=== PATIENT | male | born 1955 | race Caucasian/White ===

== ENCOUNTER 2016-08-14 10:42 | Emergency (ER) | payer MEDICAID, OTHER ==
[~2016-08-14] VITALS: Ht 167.6 cm; Wt 62.8 kg
[~2016-08-14 10:42] MED LIST: AMLO10TA2 PO; ASPI325T PO; IBUP-232 PO; PANT20 PO; PERC5TAB12 PO; ROBA750T PO; XANA2TAB2 PO
[2016-08-14 10:52] VITALS: BP 134/76; PULSE 105; RESP 20; TEMP 98.6; O2SAT 100
--- NOTE | 2016-08-14 11:41 | PD ---
HPI Chief Complaint: Flank/Kidney Pain Time Seen by Provider: 11:24 Travel History International Travel<30 days: No Contact w/Intl Traveler<30days: No Traveled to known affect area: No History of Present Illness HPI 61-year-old male complains of left flank pain and fever. Patient started having severe left flank pain sharp pain localized to the left flank area without radiation. Patient states that the pain is worse with movement. Patient states that he has intermittent dry cough. Patient states that he had fever up to 103 2 days ago. Patient states that the fever subsided yesterday. Patient denies any headache. Patient denies any earache sore throat. Patient denies any chest pain or shortness of breath. Patient denies abdominal pain. Patient denied dysuria or frequency. Patient has history chronic back pain. PFSH Past Medical History Hx Anticoagulant Therapy: Yes Arthritis: Yes Asthma: No Autoimmune Disease: No Anxiety: Yes Depression: No Heart Rhythm Problems: No Cancer: No Cardiac Catheterization: Yes (1999) Cardiovascular Problems: Yes (HTN) High Cholesterol: No (unknown no meds being taken) Chest Pain: Yes COPD: No Cerebrovascular Accident: No Coronary Artery Disease: Yes Diabetes: No Diminished Hearing: No Endocrine: No GERD: Yes Genitourinary: No Hiatal Hernia: No Hypertension: Yes Immune Disorder: No Kidney Stones: No Musculoskeletal: Yes Neurologic: No Psychiatric: Yes Reproductive: No Respiratory: No Immunizations Current: Yes Migraines: No Myocardial Infarction: Yes (1999) Renal Failure: No Seizures: No Sickle Cell Disease: No Sleep Apnea: No Thyroid Disease: No Ulcer: No Tetanus Vaccination: > 5 Years Influenza Vaccination: No Past Surgical History Abdominal Surgery: Yes (appy around 1979) AICD: Yes Appendectomy: Yes Arteriovenous Shunt: No Cardiac Surgery: Yes (heart cath 16 YEARS AGO) Ear Surgery: No Endocrine Surgery: No Eye Surgery: No Gynecologic Surgery: No Insulin Pump: No Joint Replacement: No Oral Surgery: No Pacemaker: No Thoracic Surgery: No Other Surgery: Yes Social History Alcohol Use: No Tobacco Use: Yes (1PPD) Substance Use: No Allergies-Medications (Allergen,Severity, Reaction): Coded Allergies: Penicillin (Verified Allergy, Intermediate, HIVES, 08/14/16) Reported Meds & Prescriptions Reported Meds & Active Scripts Active Reported Protonix (Pantoprazole Sodium) 20 Mg Tab 40 Mg PO DAILY Aspirin 325 Mg Tab 325 Mg PO DAILY Amlodipine (Amlodipine Besylate) 10 Mg Tab 10 Mg PO DAILY Review of Systems General / Constitutional: Positive: Fever Eyes: No: Visual changes HENT: No: Headaches Cardiovascular: No: Chest Pain or Discomfort Respiratory: No: Shortness of Breath Gastrointestinal: No: Abdominal Pain Genitourinary: No: Dysuria Musculoskeletal: No: Pain Skin: No Rash Neurologic: No: Weakness Psychiatric: No: Depression Endocrine: No: Polydipsia Hematologic/Lymphatic: No: Easy Bruising Physical Exam Narrative GENERAL: Well-nourished, well-developed patient. SKIN: Warm and dry. HEAD: Normocephalic. EYES: No scleral icterus. No injection or drainage. NECK: Supple, trachea midline. No JVD or lymphadenopathy. CARDIOVASCULAR: Regular rate and rhythm without murmurs, gallops, or rubs. RESPIRATORY: Breath sounds equal bilaterally. No accessory muscle use. GASTROINTESTINAL: Abdomen soft, non-tender, nondistended. MUSCULOSKELETAL: No cyanosis, or edema. BACK: Patient has moderate tenderness on palpation left lumbar area, left flank area. Neurologic exam normal. Data Data Last Documented VS Vital Signs Date Time Temp Pulse Resp B/P Pulse Ox O2 Delivery O2 Flow Rate FiO2 08/14/16 12:40 97 Room Air 08/14/16 10:52 98.6 105 20 134/76 Orders Complete Blood Count With Diff (08/14/16 11:31) Comprehensive Metabolic Panel (08/14/16 11:31) Lipase (08/14/16 11:31) Prothrombin Time / Inr (Pt) (08/14/16 11:31) Act Partial Throm Time (Ptt) (08/14/16 11:31) Urinalysis - C+S If Indicated (08/14/16 11:31) Ct Abd/Pel W/O Iv Contrast (08/14/16 11:31) Iv Access Insert/Monitor (08/14/16 11:31) Ecg Monitoring (08/14/16 11:31) Oximetry (08/14/16 11:31) Sodium Chloride 0.9% Flush (Ns Flush) (08/14/16 11:45) Chest, Single Ap (08/14/16 11:31) Ketorolac Inj (Toradol Inj) (08/14/16 11:45) Orphenadrine Inj (Norflex Inj) (08/14/16 12:45) Labs Laboratory Tests Test 08/14/16 11:25 White Blood Count 7.3 TH/MM3 Red Blood Count 5.11 MIL/MM3 Hemoglobin 14.4 GM/DL Hematocrit 43.9 % Mean Corpuscular Volume 85.9 FL Mean Corpuscular Hemoglobin 28.1 PG Mean Corpuscular Hemoglobin 32.8 % Concent Red Cell Distribution Width 13.2 % Platelet Count 270 TH/MM3 Mean Platelet Volume 7.2 FL Neutrophils (%) (Auto) 77.7 % Lymphocytes (%) (Auto) 11.4 % Monocytes (%) (Auto) 10.2 % Eosinophils (%) (Auto) 0.3 % Basophils (%) (Auto) 0.4 % Neutrophils # (Auto) 5.8 TH/MM3 Lymphocytes # (Auto) 0.8 TH/MM3 Monocytes # (Auto) 0.7 TH/MM3 Eosinophils # (Auto) 0.0 TH/MM3 Basophils # (Auto) 0.0 TH/MM3 CBC Comment DIFF FINAL Differential Comment Prothrombin Time 10.8 SEC Prothromb Time International 1.0 RATIO Ratio Activated Partial 30.8 SEC Thromboplast Time Urine Color YELLOW Urine Turbidity CLEAR Urine pH 6.0 Urine Specific [place] 1.017 Urine Protein NEG mg/dL Urine Glucose (UA) NEG mg/dL Urine Ketones NEG mg/dL Urine Occult Blood NEG Urine Nitrite NEG Urine Bilirubin NEG Urine Leukocyte Esterase NEG Urine WBC 3-5 /hpf Urine Squamous Epithelial 0-5 /hpf Cells Urine Bacteria OCC /hpf Urine Hyaline Casts 0-2 /lpf Urine Mucus MANY /lpf Urine Sperm RARE Microscopic Urinalysis Comment CULT NOT INDICATED Sodium Level 140 MEQ/L Potassium Level 4.2 MEQ/L Chloride Level 105 MEQ/L Carbon Dioxide Level 27.8 MEQ/L Anion Gap 7 MEQ/L Blood Urea Nitrogen 11 MG/DL Creatinine 0.96 MG/DL Estimat Glomerular Filtration 80 ML/MIN Rate Random Glucose 104 MG/DL Calcium Level 8.4 MG/DL Total Bilirubin 0.3 MG/DL Aspartate Amino Transf 12 U/L (AST/SGOT) Alanine Aminotransferase 15 U/L (ALT/SGPT) Alkaline Phosphatase 127 U/L Total Protein 7.7 GM/DL Albumin 3.4 GM/DL Lipase 141 U/L [facility] Medical Decision Making Medical Screen Exam Complete: Yes Emergency Medical Condition: Yes Interpretation(s) 12:17 PM. CBC within normal limit. WBC 7.3. 77 neutrophil. CMP within normal limit. Alkaline phosphatase 127. UA positive with occasional bacteria. Negative for WBC. Differential Diagnosis Differential diagnosis including musculoskeletal, nephrolithiasis, pyelonephritis, colitis. Narrative Course 61-year-old male with left flank pain and fever. Toradol 30 mg IV. Norflex 60 mg IM. Diagnosis Primary Impression: Bronchitis Additional Impression: Left flank pain Patient Instructions: General Instructions Additional Instructions: Medications as directed. Follow-up with personal physician. Return if worse. Med/Other Pt SpecificInfo: Prescription(s) given Scripts Azithromycin (Zithromax Z-Ja)250 Mg [id number] Mg PO DIRECTED #1 DSPK Ref 0 500 MG (2 tabs) day 1, then 1 tab days 2-5. Prov:Mukesh Iqbal MD 08/14/16 Cyclobenzaprine (Flexeril)10 Mg Tab10 Mg PO TID #60 TAB Ref 0 Prov:Mukesh Iqbal MD 08/14/16 Disposition: 01 DISCHARGE HOME Condition: Stable Mukesh Iqbal MD Aug 14, 2016 11:41
[2016-08-14 11:45] LABS: AUTOMATED NEUTROPHIL # 5.8 TH/MM3 (1.8-7.7); BASOPHIL % 0.4 % (0.0-2.0); EOSINOPHIL % 0.3 % (0.0-4.0); HEMATOCRIT 43.9 % (39.0-51.0); HEMO FLAGS DIFF FINAL; LYMPH % 11.4 % (9.0-44.0); LYMPHOCYTE # 0.8 TH/MM3 (1.0-4.8); MEAN CELL VOLUME 85.9 FL (80.0-100.0); MEAN CORPUSCULAR HEMOGLOBIN 28.1 PG (27.0-34.0); MEAN CORPUSCULAR HGB CONC 32.8 % (32.0-36.0); MONO % 10.2 % (0.0-8.0); NEUT % 77.7 % (16.0-70.0); PLATELET COUNT 270 TH/MM3 (150-450); RED BLOOD COUNT 5.11 MIL/MM3 (4.50-5.90); RED CELL DISTRIBUTION WIDTH 13.2 % (11.6-17.2); WHITE BLOOD COUNT 7.3 TH/MM3 (4.0-11.0)
[2016-08-14] MEDS ORDERED: SODIUM CHLORIDE 0.9% FLUSH 5 ML FLUSH IVF PRN (11:45)
[2016-08-14] MEDS ORDERED: KETOROLAC TROMETHAMINE 30 MG/ML (IVP) VIAL IVP ONE (11:45)
[2016-08-14 11:51] LABS: BLOOD, URINE NEG (NEG); GLUCOSE,URINE NEG (NEG); KETONE, URINE NEG (NEG); NITRITE,URINE NEG (NEG)
[2016-08-14 11:53] LABS: URINE COLOR YELLOW (YELLW/STRAW)
[2016-08-14 11:54] LABS: CHLORIDE 105 MEQ/L (98-107); POTASSIUM 4.2 MEQ/L (3.5-5.1); SODIUM (NA) 140 MEQ/L (136-145)
[2016-08-14 11:57] LABS: HYALINE CAST, URINE 0-2 /lpf (RARE); MUCUS URINE MANY /lpf (OCC)
[2016-08-14 11:58] LABS: ANION GAP 7 MEQ/L (5-15); APTT (PATIENT) 30.8 SEC (24.3-30.1); BACTERIA, URINE OCC /hpf; BICARBONATE 27.8 MEQ/L (21.0-32.0); BLOOD UREA NITROGEN 11 MG/DL (7-18); PROTHROMBIN TIME - PATIENT 10.8 SEC (9.8-11.6); SQUAMOUS EPITHELIAL CELL URINE 0-5 /hpf (0-5)
[2016-08-14 11:59] LABS: COMMENT (UR) CULT NOT INDICATED; CULTURE IF INDICATED CULT NOT INDICATED
[2016-08-14 12:01] LABS: ALT (GPT) 15 U/L (12-78); AST (GOT) 12 U/L (15-37); GLOMERULAR FILTRATION RATE 80 ML/MIN (>89)
[2016-08-14 12:02] LABS: TOTAL BILIRUBIN ADULT 0.3 MG/DL (0.2-1.0)
[2016-08-14 12:03] LABS: ALKALINE PHOSPHATASE 127 U/L (45-117)
[2016-08-14 12:40] VITALS: O2SAT 97
[2016-08-14] MEDS ORDERED: ORPHENADRINE INJ 60 MG/2 ML AMP IM ONE (12:45)
--- NOTE | 2016-08-14 12:58 | RADHPO ---
EXAM DATE/TIME: 08/14/2016 12:00 [facility] COMPARISON: No previous studies available for comparison. INDICATIONS: Left flank pain. ORAL CONTRAST: No oral contrast ingested. RADIATION DOSE: 8.95 CTDIvol (mGy) MEDICAL HISTORY: Hypertension. SURGICAL HISTORY: Appendectomy. ENCOUNTER: Initial ACUITY: 3 days PAIN SCALE: 4/10 LOCATION: Left flank TECHNIQUE: Volumetric scanning of the abdomen and pelvis was performed. Using automated exposure control and ad justment of the mA and/or kV according to patient size, radiation dose was kept as low as reasonably achievable to obtain optimal diagnostic quality images. FINDINGS: Lung bases are clear. The portion of the liver and spleen identified are free of focal defects. Leander cified gallstones are noted in the gallbladder. Pancreas is unremarkable. Adrenal glands appear normal. RIGHT KIDNEY: There is a 3 mm calcification in the right renal pelvis. LEFT KIDNEY: On the left there is a single 1 mm calcification upper pole of the left kidney. There are no calcifications along the expected course of the right or the left ureter. There is blad ben wall thickening present. Prostatic calcifications are noted. There is no ascites or adenopathy. Review of bone windows reveals only degenerative changes. CONCLUSION: 1. Small bilateral renal stones without evidence for perinephric stranding. 2. Polynephritis cannot be excluded because of lack of intravenous contrast. 3. There are moderate degenerative changes present in the lumbar spine. 4. Moderate bladder wall thickening that does deserve further evaluation. Vasquez Gaitan MD FACR on August 14, 2016 at 12:47 Board Certified Radiologist. This report was verified electronically.
--- NOTE | 2016-08-14 13:04 | RADHPO ---
EXAM DATE/TIME: 08/14/2016 11:56 [facility] COMPARISON: CHEST SINGLE AP, June 12, 2016, 17:53. INDICATIONS: Fever MEDICAL HISTORY: Smoker SURGICAL HISTORY: None. ENCOUNTER: Initial ACUITY: 2 days PAIN SCORE: 10/10 LOCATION: Bilateral chest FINDINGS: There is a background of fine interstitial changes present in both lungs. Heart and pulmonary vascul arity are normal. Portion of bony skeleton visualized unremarkable. CONCLUSION: Minimal interstitial changes in both lungs. This could be an early inflammatory process as questione d. Vasqeuz Gaitan MD FACR on August 14, 2016 at 13:01 Board Certified Radiologist. This report was verified electronically.
[2016-08-14] MEDS ORDERED: ZITHTAB PO (13:16)
[2016-08-14] MEDS ORDERED: CYCL1TAB29 PO (13:16)
[2016-08-14 13:27] VITALS: BP 95/61
== END 2016-08-14 13:29 | disposition home or self-care (01) ==
LOC: PHED 10:42
DX: J40 Bronchitis, not specified as acute or chronic (principal); R10.12 Left upper quadrant pain; I10 Essential (primary) hypertension; N20.0 Calculus of kidney; I25.2 Old myocardial infarction; F17.210 Nicotine dependence, cigarettes, uncomplicated
CPT/HCPCS: 71010; 74176; 80053; 81001; 83690; 85025; 85610; 85730; 96372; 96374; 99284; J1885; J2360

== ENCOUNTER 2017-03-05 17:04 | Observation (INO) | payer OTHER ==
[~2017-03-05] VITALS: Ht 167.6 cm; Wt 66.2 kg
[~2017-03-05 17:04] MED LIST changes: +CYCL1TAB29 PO; -IBUP-232 PO; -PERC5TAB12 PO; -ROBA750T PO; +ZITHTAB PO
[2017-03-05 17:09] VITALS: BP 142/65; PULSE 90; RESP 18; TEMP 99.5; O2SAT 93
[2017-03-05] MEDS ORDERED: SODIUM CHLOR 0.9% 1000 ML INJ 1,000 ML IV SCH (18:54)
[2017-03-05] MEDS ORDERED: OXYC-396 PO (18:55)
[2017-03-05] MEDS ORDERED: SODIUM CHLORIDE 0.9% FLUSH 10 ML FLUSH IV FLUSH PRN ×2 (19:00→23:00)
[2017-03-05] MEDS ORDERED: ONDANSETRON HCL 4 MG/2 ML VIAL IV PUSH ONE (19:30)
[2017-03-05] MEDS ORDERED: MORPHINE SULFATE 4 MG/ML INJ IV PUSH ONE (19:30)
[2017-03-05 19:35] VITALS: BP 131/71; PULSE 78; RESP 18; TEMP 98.1; O2SAT 93
[2017-03-05 19:40] LABS: AUTOMATED NEUTROPHIL # 7.6 TH/MM3 (1.8-7.7); BASOPHIL # 0.1 TH/MM3 (0-0.2); BASOPHIL % 0.6 % (0.0-2.0); EOSINOPHIL # 0.3 TH/MM3 (0-0.4); EOSINOPHIL % 2.4 % (0.0-4.0); HEMATOCRIT 39.9 % (39.0-51.0); HEMO FLAGS DIFF FINAL; LYMPH % 20.5 % (9.0-44.0); LYMPHOCYTE # 2.3 TH/MM3 (1.0-4.8); MEAN CELL VOLUME 86.9 FL (80.0-100.0); MEAN CORPUSCULAR HEMOGLOBIN 28.4 PG (27.0-34.0); MEAN CORPUSCULAR HGB CONC 32.7 % (32.0-36.0); MONO % 7.2 % (0.0-8.0); NEUT % 69.3 % (16.0-70.0); PLATELET COUNT 300 TH/MM3 (150-450); RED BLOOD COUNT 4.59 MIL/MM3 (4.50-5.90); RED CELL DISTRIBUTION WIDTH 13.6 % (11.6-17.2); WHITE BLOOD COUNT 11.1 TH/MM3 (4.0-11.0)
[2017-03-05 19:51] VITALS: O2SAT 95
[2017-03-05 19:51] LABS: CHLORIDE 102 MEQ/L (98-107); POTASSIUM 3.8 MEQ/L (3.5-5.1); SODIUM (NA) 137 MEQ/L (136-145)
[2017-03-05 19:55] LABS: ANION GAP 5 MEQ/L (5-15); BICARBONATE 29.8 MEQ/L (21.0-32.0); BLOOD UREA NITROGEN 11 MG/DL (7-18)
[2017-03-05 19:57] LABS: APTT (PATIENT) 30.9 SEC (24.3-30.1); PROTHROMBIN TIME - PATIENT 10.5 SEC (9.8-11.6)
[2017-03-05 19:58] LABS: ALT (GPT) 16 U/L (12-78); AST (GOT) 19 U/L (15-37); GLOMERULAR FILTRATION RATE 76 ML/MIN (>89)
[2017-03-05 20:00] LABS: TOTAL BILIRUBIN ADULT 0.2 MG/DL (0.2-1.0)
[2017-03-05 20:01] LABS: ALKALINE PHOSPHATASE 119 U/L (45-117)
[2017-03-05 20:14] VITALS: BP 126/59; PULSE 76; RESP 17; O2SAT 97
[2017-03-05 20:32] VITALS: BP 129/67; PULSE 81; RESP 18; TEMP 97.9; O2SAT 96
[2017-03-05] MEDS ORDERED: IOHEXOL 350 MG/ML 10 ML VIAL (for RAD DIAG) IVCONTRAST ONE (20:56)
--- NOTE | 2017-03-05 21:18 | PD ---
HPI Chief Complaint: GI Complaint Time Seen by Provider: 18:38 Travel History International Travel<30 days: No Contact w/Intl Traveler<30days: No Traveled to known affect area: No History of Present Illness HPI The patient 62 years old. He arrives complaining of hematochezia. 10 episodes of hematochezia were observed, bright red blood. The patient reports a colonoscopy was done 1 year ago and was normal. That was done at that time due to a 60 pound weight loss with no identifiable etiology. He describes a crampy like abdominal pain precipitating each episode of hematochezia. Minimal lightheadedness reported. No palpitations no headache, no loss of consciousness or dizziness. Patient takes aspirin and no anticoagulants otherwise. PFSH Past Medical History Hx Anticoagulant Therapy: Yes Arthritis: Yes (back) Asthma: No Autoimmune Disease: No Anxiety: Yes Depression: No Heart Rhythm Problems: No Cancer: No Cardiac Catheterization: Yes (1999) Cardiovascular Problems: Yes (HTN) High Cholesterol: No (unknown no meds being taken) Chest Pain: Yes COPD: No Cerebrovascular Accident: No Coronary Artery Disease: Yes Diabetes: No Diminished Hearing: No Endocrine: No GERD: Yes Genitourinary: No Hiatal Hernia: No Hypertension: Yes Immune Disorder: No Kidney Stones: No Musculoskeletal: Yes Neurologic: No Psychiatric: Yes Reproductive: No Respiratory: No Immunizations Current: Yes Migraines: No Myocardial Infarction: Yes (1999) Renal Failure: No Seizures: No Sickle Cell Disease: No Sleep Apnea: No Thyroid Disease: No Ulcer: No Tetanus Vaccination: > 5 Years Influenza Vaccination: No Past Surgical History Abdominal Surgery: Yes (appy around 1979) AICD: Yes Appendectomy: Yes Arteriovenous Shunt: No Cardiac Surgery: Yes (heart cath) Ear Surgery: No Endocrine Surgery: No Eye Surgery: No Gynecologic Surgery: No Insulin Pump: No Joint Replacement: No Oral Surgery: No Pacemaker: No Thoracic Surgery: No Other Surgery: Yes Social History Alcohol Use: No Tobacco Use: Yes (1 1/2PPD) Substance Use: No Allergies-Medications (Allergen,Severity, Reaction): Coded Allergies: penicillin G (Unverified Allergy, Intermediate, HIVES, 03/05/17) Reported Meds & Prescriptions Reported Meds & Active Scripts Active Reported Oxycodone (Oxycodone HCl) 20 Mg Tab 20 Mg PO QID PRN Xanax (Alprazolam) 2 Mg Tab 2 Mg PO HS PRN Aspirin 325 Mg Tab 325 Mg PO DAILY Amlodipine (Amlodipine Besylate) 10 Mg Tab 10 Mg PO DAILY Review of Systems Except as stated in HPI: all other systems reviewed are Neg Physical Exam Narrative GENERAL: 52-year-old male well-nourished well-developed no acute distress SKIN: Warm and dry. HEAD: Atraumatic. Normocephalic. EYES: Pupils equal and round. No scleral icterus. No injection or drainage. ENT: No nasal bleeding or discharge. Mucous membranes pink and moist. NECK: Trachea midline. No JVD. CARDIOVASCULAR: Regular rate and rhythm. RESPIRATORY: No accessory muscle use. Clear to auscultation. Breath sounds equal bilaterally. GASTROINTESTINAL: Abdomen soft, non-tender, nondistended. Hepatic and splenic margins not palpable. MUSCULOSKELETAL: Extremities without clubbing, cyanosis, or edema. No obvious deformities. NEUROLOGICAL: Awake and alert. No obvious cranial nerve deficits. Motor grossly within normal limits. Five out of 5 muscle strength in the arms and legs. Normal speech. PSYCHIATRIC: Appropriate mood and affect; insight and judgment normal. Data Data Last Documented VS Vital Signs Date Time Temp Pulse Resp B/P (MAP) Pulse Ox O2 Delivery O2 Flow Rate FiO2 03/05/17 20:32 97.9 81 18 129/67 (87) 96 Room Air 03/05/17 20:14 2.00 Blood pressure 131/71 Orders Orders Complete Blood Count With Diff (03/05/17 18:54) Comprehensive Metabolic Panel (03/05/17 18:54) Lactic Acid (03/05/17 18:54) Prothrombin Time / Inr (Pt) (03/05/17 18:54) Act Partial Throm Time (Ptt) (03/05/17 18:54) Iv Access Insert/Monitor (03/05/17 18:54) Ecg Monitoring (03/05/17 18:54) Oximetry (03/05/17 18:54) Sodium Chlor 0.9% 1000 Ml Inj (Ns 1000 M (03/05/17 18:54) Sodium Chloride 0.9% Flush (Ns Flush) (03/05/17 19:00) Type And Screen (03/05/17 18:54) Cta Abd/Pel W Iv Contrast W 3d (03/05/17 ) Morphine Inj (Morphine Inj) (03/05/17 19:30) Ondansetron Inj (Zofran Inj) (03/05/17 19:30) Iohexol 350 Inj (Omnipaque 350 Inj) (03/05/17 20:56) Admit Order (Ed Use Only) (03/05/17 22:55) Consult Gastroenterology (03/05/17 ) Place In Observation (03/05/17 ) Vital Signs (Adult) Q4H (03/05/17 22:57) Activity Oob With Assistance (03/05/17 22:57) Anaesthesiologist / Telemetry .CONTINUOUS (03/05/17 22:57) Diet Npo (03/06/17 Breakfast) Sodium Chloride 0.9% Flush (Ns Flush) (03/05/17 23:00) Sodium Chloride 0.9% Flush (Ns Flush) (03/06/17 09:00) Naloxone Inj (Narcan Inj) (03/05/17 23:00) Hgb & Hct (03/05/17 22:57) Hgb & Hct (03/06/17 02:57) Hgb & Hct (03/06/17 06:57) Hgb & Hct (03/06/17 10:57) Labs Laboratory Tests Test 03/05/17 19:29 White Blood Count 11.1 TH/MM3 Red Blood Count 4.59 MIL/MM3 Hemoglobin 13.1 GM/DL Hematocrit 39.9 % Mean Corpuscular Volume 86.9 FL Mean Corpuscular Hemoglobin 28.4 PG Mean Corpuscular Hemoglobin Concent 32.7 % Red Cell Distribution Width 13.6 % Platelet Count 300 TH/MM3 Mean Platelet Volume 7.3 FL Neutrophils (%) (Auto) 69.3 % Lymphocytes (%) (Auto) 20.5 % Monocytes (%) (Auto) 7.2 % Eosinophils (%) (Auto) 2.4 % Basophils (%) (Auto) 0.6 % Neutrophils # (Auto) 7.6 TH/MM3 Lymphocytes # (Auto) 2.3 TH/MM3 Monocytes # (Auto) 0.8 TH/MM3 Eosinophils # (Auto) 0.3 TH/MM3 Basophils # (Auto) 0.1 TH/MM3 CBC Comment DIFF FINAL Differential Comment Prothrombin Time 10.5 SEC Prothromb Time International Ratio 1.0 RATIO Activated Partial Thromboplast Time 30.9 SEC Blood Urea Nitrogen 11 MG/DL Creatinine 1.00 MG/DL Random Glucose 95 MG/DL Total Protein 7.1 GM/DL Albumin 3.3 GM/DL Calcium Level 7.7 MG/DL Alkaline Phosphatase 119 U/L Aspartate Amino Transf (AST/SGOT) 19 U/L Alanine Aminotransferase (ALT/SGPT) 16 U/L Total Bilirubin 0.2 MG/DL Sodium Level 137 MEQ/L Potassium Level 3.8 MEQ/L Chloride Level 102 MEQ/L Carbon Dioxide Level 29.8 MEQ/L Anion Gap 5 MEQ/L Estimat Glomerular Filtration Rate 76 ML/MIN Lactic Acid Level 0.6 mmol/L MDM Medical Decision Making Medical Screen Exam Complete: Yes Emergency Medical Condition: Yes Medical Record Reviewed: Yes Differential Diagnosis Diverticulosis, diverticulitis, acute anemia, angiodysplasia, hemorrhoids Narrative Course CBC & BMP Diagram 03/05/17 19:29 Total Protein 7.1, Albumin 3.3 L, Calcium Level 7.7 L, Alkaline Phosphatase 119 H, Aspartate Amino Transf (AST/SGOT) 19, Alanine Aminotransferase (ALT/SGPT) 16 , Total Bilirubin 0.2 Lactic acid 0.[address] abdomen and pelvis reveals suspected colitis involving much of the left side of the colon. Focal area prominent plaque in her dissection at the posterior distal abdominal aorta appears stable. 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 Case discussed with vascular surgery who notes no acute vascular issue. Case discussed with Dr Hogan for [facility]. consult to GI placed Diagnosis Primary Impression: Colitis Additional Impression: Hematochezia Admitting Information Admitting Physician Requests: Observation Mt Gorman MD Mar 05, 2017 21:18
--- NOTE | 2017-03-05 22:11 | RADRPT ---
EXAM DATE/TIME: 03/05/2017 20:21 [facility] COMPARISON: CT ABDOMEN & PELVIS W CONTRAST, November 26, 2015, 20:17. INDICATIONS : Abdominal pain. Thrombosis. Evaluate for mesenteric ischemia. IV CONTRAST: 100 cc Omnipaque 350 (iohexol) IV ORAL CONTRAST: No oral contrast ingested. RADIATION DOSE: 18.03 CTDIvol (mGy) MEDICAL HISTORY : Gastroesophageal reflux disease. Hypertension. SURGICAL HISTORY : Appendectomy. ENCOUNTER: Initial ACUITY: 1 week PAIN SCALE: 2/10 LOCATION: Bilateral upper quadrant lower quadrant. TECHNIQUE: Volumetric scanning was performed using a multi-row detector CT scanner. The data was post processed with a variety of visualization algorithms including full volume maximum intensity pr ojection, multi-planar sliding thin slab reformation, curved planar reformation, and surface renderin g techniques. Using automated exposure control and adjustment of the mA and/or kV according to patie nt size, radiation dose was kept as low as reasonably achievable to obtain optimal diagnostic quality images. DICOM format image data is available electronically for review and comparison. FINDINGS: There is thickening of the distal transverse colon, descending colon, sigmoid colon and rectum. There is some surrounding induration in these regions especially around the sigmoid and desc ending colon. This likely represents colitis. The celiac, SMA, and QUIRINO are patent. There is some a therosclerotic change seen at the SMA but a significant stenosis is not clearly identified. There is atherosclerotic change seen throughout the abdominal aorta. This includes what appears to be a foca l dissection at the posterior distal abdominal aorta. In retrospect this was present on a prior CT f rom 11/26/2015 and is unchanged. An aneurysm is not seen. Single renal arteries are identified bilat erally which appear normal. There is a 1.2 cm aneurysm seen at the distal left common iliac artery. There does appear to be a mo derate stenosis at the distal left common iliac artery at its bifurcation. The external iliac arteri es are patent bilaterally. The internal iliac arteries are patent bilaterally. The liver, spleen, pancreas, adrenal glands and kidneys are normal. Calcified gallstones are present. CONCLUSION: 1. Suspected colitis involving much of the left side of the colon. Cause is not known. 2. The celiac, SMA, and QUIRINO are all patent. There is some mild atherosclerotic change seen at the SM A. A flow-limiting stenosis is not clearly seen. 3. Atherosclerotic change seen throughout the arterial system including a focal area of prominent bruce que and/or dissection at the posterior distal abdominal aorta. This is unchanged from the prior exam. 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 4. Gallstones. Figueroa Aparicio MD on March 05, 2017 at 21:39 Board Certified Radiologist. This report was verified electronically.
[2017-03-05] MEDS ORDERED: NALOXONE HCL 0.4 MG/ML AMP IV PRN (23:00)
[2017-03-05] MEDS ORDERED: NICOTINE 21 MG/24 HR PATCH T-DERMAL ONE (23:30)
[2017-03-05] MEDS ORDERED: LORazepam 2 MG/ML VIAL IV PUSH ONE (23:30)
[2017-03-05] MEDS: CIPROFLOXACIN 400 MG PREMIX 200 ML IV SCH (23:32)
[2017-03-05 23:40] VITALS: BP 113/70; PULSE 87; RESP 16; TEMP 98.3; O2SAT 97
[2017-03-05 23:47] LABS: HEMATOCRIT 40.7 % (39.0-51.0); REVIEW FLAG FINAL
[2017-03-06] VITALS (7 sets, daily range): BP systolic 105–142; BP diastolic 62–81; PULSE 74–82; RESP 18–19; TEMP 96.6–97.9; O2SAT 94–100
[2017-03-06] MEDS: metroNIDAZOLE 500 MG INJ 100 ML IV SCH ×5 (01:39→23:01)
[2017-03-06 03:24] LABS: HEMATOCRIT 37.7 % (39.0-51.0); REVIEW FLAG FINAL
[2017-03-06 08:10] LABS: HEMATOCRIT 40.8 % (39.0-51.0)
[2017-03-06 08:11] LABS: REVIEW FLAG FINAL
[2017-03-06] MEDS: NS + KCL 20 MEQ INJ 1,000 ML IV SCH ×2 (08:23→09:23)
[2017-03-06] MEDS: SODIUM CHLORIDE 0.9% FLUSH 10 ML FLUSH IV FLUSH SCH ×2 (08:23→20:07)
[2017-03-06 08:26] LABS: POTASSIUM 3.8 MEQ/L (3.5-5.1)
[2017-03-06 08:29] LABS: BICARBONATE 29.2 MEQ/L (21.0-32.0)
[2017-03-06] MEDS ORDERED: ALPRAZolam 1 MG TAB PO PRN (08:30)
[2017-03-06] MEDS: CIPROFLOXACIN 400 MG PREMIX 200 ML IV SCH (10:17)
[2017-03-06] MEDS ORDERED: SENNOSIDES 8.6 MG TAB PO PRN (10:45)
[2017-03-06] MEDS ORDERED: BISACODYL 10 MG SUPP RECTAL PRN (10:45)
[2017-03-06] MEDS ORDERED: LACTULOSE SYRUP 20 GM/30 ML CUP PO PRN (10:45)
[2017-03-06] MEDS ORDERED: ONDANSETRON HCL 4 MG/2 ML VIAL IVP PRN (10:45)
[2017-03-06] MEDS ORDERED: MORPHINE SULFATE 4 MG/ML INJ IV PRN (10:45)
[2017-03-06] MEDS ORDERED: MAGNESIUM HYDROXIDE SUSP 30 ML CUP PO PRN (10:45)
[2017-03-06] MEDS ORDERED: ACETAMINOPHEN 325 MG TAB PO PRN (10:45)
--- NOTE | 2017-03-06 12:42 | HHI.HP ---
HPI Service [facility] Primary Care Physician Heather Frank MD Admission Diagnosis Hematochezia; L Colon Colitis Diagnoses: (1) Colitis Diagnosis: Principal (2) Hematochezia Diagnosis: Principal Chief Complaint: Bright red blood per rectum Travel History International Travel<30 Days: No Contact w/Intl Traveler <30 Da: No Traveled to Known Affected Are: No History of Present Illness Written by Won Campbell, acting as scribe for Dr. Padilla on 03/06/17 at 12: 42. 62-year-old male with known history of chronic back pain, hypertension, coronary artery disease, history of myocardial infarction who presented to hospital because of bright red blood per rectum. Patient states that a normal state of health yesterday until 10 AM. Patient had some mild lower abdominal cramping and he went to the restroom and he noticed that there was bright red blood that came out approximately 2 tablespoons. Patient states that he had approximately 10 other episodes just like that where he felt the urge to go to the bathroom however it was only bright red blood coming out his rectum. Patient denies any nausea, vomiting, melena. Patient did have EGD/colonoscopy done approximately one year ago by which was normal. Patient had lab work done and hemoglobin continues to be stable. He indicates that the only thing he ate the day before was grilled cheese sandwich. He denies any sick contacts. He did have mild diffuse sandwich and coleslaw yesterday afternoon. Patient had workup done and found to have colitis by CT and he was started on empirical IV antibiotics and recommended admission with GI consultation. Review of Systems Gastrointestinal: COMPLAINS OF: Abdominal pain, Bloody stools Except as stated in HPI: all other systems reviewed are Neg Past Family Social History Past Medical History Hypertension Coronary artery disease Chronic back pain History myocardial infarction Past Surgical History Cardiac catheterization Appendectomy EGD/colonoscopy Reported Medications Reported Meds & Active Scripts Active Reported Oxycodone (Oxycodone HCl) 20 Mg Tab 20 Mg PO QID PRN Xanax (Alprazolam) 2 Mg Tab 2 Mg PO HS PRN Aspirin 325 Mg Tab 325 Mg PO DAILY Amlodipine (Amlodipine Besylate) 10 Mg Tab 10 Mg PO DAILY Allergies: Coded Allergies: penicillin G (Unverified Allergy, Intermediate, HIVES, 03/05/17) Family History Reviewed is significant for mother at age 68 from MRSA pneumonia, father at age 62 from lung cancer Social History Patient continues to smoke 1-1/2 pack a cigarettes a day since he was 13 years old. Denies any alcohol or illicit drugs Physical Exam Vital Signs Vital Signs Date Time Temp Pulse Resp B/P (MAP) Pulse Ox O2 Delivery O2 Flow Rate FiO2 03/06/17 12:00 96.6 82 18 105/64 (78) 94 03/06/17 08:00 96.8 77 19 142/81 (101) 95 03/06/17 04:00 96.6 74 18 120/75 (90) 96 03/06/17 03:19 97.9 87 16 115/62 (79) 95 03/05/17 23:40 98.3 87 16 113/70 (84) 97 Room Air 03/05/17 20:32 97.9 81 18 129/67 (87) 96 Room Air 03/05/17 20:14 76 17 126/59 (81) 97 Nasal Cannula 2.00 03/05/17 19:51 95 Nasal Cannula 2.00 03/05/17 19:41 17 03/05/17 19:35 98.1 78 18 131/71 (91) 93 Room Air 03/05/17 18:44 16 03/05/17 17:09 99.5 90 18 142/65 (90) 93 Physical Exam GENERAL: Well-developed, well-nourished, in no acute distress. alert and orientated HEENT: Head is normocephalic without any lesions or masses noted. Facial features are symmetric. Eyes: Pupils equal round reactive to light. Extraocular muscles are intact. Conjunctivae were clear. Oropharyngeal: Pharynx without any erythema edema. Tongue is midline without deviation. Buccal mucosa is moist without any masses or lesions NECK: Supple without any masses. Trachea midline no deviation. No JVD, no bruits are appreciated CARDIAC: Regular rhythm, regular rate. S1/S2 are heard. No murmurs gallops or rubs. LUNGS: Clear to auscultation bilaterally. No wheeze, rhonchi or rales. No use of accessory muscles on inspiration or expiration. ABDOMEN: Soft, nontender. Nondistended. Bowel sounds heard in all 4 quadrants. No organomegaly or masses. Negative rebound, negative guarding EXTREMITIES: No edema, pulses are equal bilaterally. No cyanosis or clubbing NEUROLOGY: Mood and affect appear appropriate. Cranial nerves II through XII grossly intact. Muscle strength 5/5 in upper and lower extremities bilaterally. Deep tendon reflexes are 2+ in upper and lower extremities bilaterally. Laboratory Laboratory Tests Test 03/05/17 19:29 03/05/17 23:39 03/06/17 03:14 03/06/17 07:50 White Blood Count 11.1 Red Blood Count 4.59 Hemoglobin 13.1 13.3 12.5 13.3 Hematocrit 39.9 40.7 37.7 40.8 Mean Corpuscular Volume 86.9 Mean Corpuscular Hemoglobin 28.4 Mean Corpuscular Hemoglobin Concent 32.7 Red Cell Distribution Width 13.6 Platelet Count 300 Mean Platelet Volume 7.3 Neutrophils (%) (Auto) 69.3 Lymphocytes (%) (Auto) 20.5 Monocytes (%) (Auto) 7.2 Eosinophils (%) (Auto) 2.4 Basophils (%) (Auto) 0.6 Neutrophils # (Auto) 7.6 Lymphocytes # (Auto) 2.3 Monocytes # (Auto) 0.8 Eosinophils # (Auto) 0.3 Basophils # (Auto) 0.1 CBC Comment DIFF FINAL Differential Comment Prothrombin Time 10.5 Prothromb Time International Ratio 1.0 Activated Partial Thromboplast Time 30.9 Blood Urea Nitrogen 11 8 Creatinine 1.00 0.86 Random Glucose 95 92 Total Protein 7.1 Albumin 3.3 Calcium Level 7.7 8.1 Alkaline Phosphatase 119 Aspartate Amino Transf (AST/SGOT) 19 Alanine Aminotransferase (ALT/SGPT) 16 Total Bilirubin 0.2 Sodium Level 137 139 Potassium Level 3.8 3.8 Chloride Level 102 104 Carbon Dioxide Level 29.8 29.2 Anion Gap 5 6 Estimat Glomerular Filtration Rate 76 90 Lactic Acid Level 0.6 Result Diagram: 03/06/17 0750 03/06/17 0750 Imaging Last Impressions Abdomen/Pelvis CT 03/05/17 0000 Signed Impressions: Service Date/Time: Sunday, March 05, 2017 20:21 - CONCLUSION: 1. Suspected colitis involving much of the left side of the colon. Cause is not known. 2. The celiac, SMA, and QUIRINO are all patent. There is some mild atherosclerotic change seen at the SMA. A flow-limiting stenosis is not clearly seen. 3. Atherosclerotic change seen throughout the arterial system including a focal area of prominent plaque and/or dissection at the posterior distal abdominal aorta. This is unchanged from the prior exam. 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 4. Gallstones. Figueroa Aparicio MD Capthania VTE Risk Assessment Caprini VTE Risk Assessment: Mod/High Risk (score >= 2) Caprini Risk Assessment Model Point Value = 1 Point Value = 2 Point Value = 3 Point Value = 5 Age 41-60 Minor surgery BMI > 25 kg/m2 Swollen legs Varicose veins or History of unexplained or recurrent spontaneous Oral contraceptives or hormone replacement Sepsis (< 1 month) Serious lung disease, including pneumonia (< 1 month) Abnormal pulmonary function Acute myocardial infarction Congestive heart failure (< 1 month) History of inflammatory bowel disease Medical patient at bed rest Age 61-74 Arthroscopic surgery Major open surgery (> 45 min) Laparoscopic surgery (> 45 min) Malignancy Confined to bed (> 72 hours) Immobilizing plaster cast Central venous access Age >= 75 History of VTE Family history of VTE Factor V Leiden Prothrombin [id number] Lupus anticoagulant Anticardiolipin antibodies Elevated serum homocysteine Heparin-induced thrombocytopenia Other congenital or acquired thrombophilia Stroke (< 1 month) Elective arthroplasty Hip, pelvis, or leg fracture Acute spinal cord injury (< 1 month) Prophylaxis Regimen Total Risk Factor Score Risk Level Prophylaxis Regimen 0-1 Low Early ambulation 2 Moderate Order ONE of the following: *Sequential Compression Device (SCD) *Heparin 5000 units SQ BID 3-4 Higher Order ONE of the following medications: *Heparin 5000 units SQ TID *Enoxaparin/Lovenox 40 mg SQ daily (WT < 150 kg, CrCl > 30 mL/min) *Enoxaparin/Lovenox 30 mg SQ daily (WT < 150 kg, CrCl > 10-29 mL/min) *Enoxaparin/Lovenox 30 mg SQ BID (WT < 150 kg, CrCl > 30 mL/min) AND/OR *Sequential Compression Device (SCD) 5 or more Highest Order ONE of the following medications: *Heparin 5000 units SQ TID (Preferred with Epidurals) *Enoxaparin/Lovenox 40 mg SQ daily (WT < 150 kg, CrCl > 30 mL/min) *Enoxaparin/Lovenox 30 mg SQ daily (WT < 150 kg, CrCl > 10-29 mL/min) *Enoxaparin/Lovenox 30 mg SQ BID (WT < 150 kg, CrCl > 30 mL/min) AND *Sequential Compression Device (SCD) Assessment and Plan Assessment and Plan 62-year-old male who presented to hospital for evaluation of bright red blood per rectum: Colitis with hematochezia: CT scan does show suspected colitis involving the left side of the colon causes unknown. SMA and QUIRINO are all patent. No risk factors to indicate infectious colitis. Patient was started on empirical antibiotics include Cipro/Flagyl IV. GI was consulted for further recommendations. Trend hemoglobin and transfuse if hemoglobin below 8.0. Patient did have EGD/colonoscopy done one year ago by Dr. Mauro. Pain management with Percocet and IV morphine Hypertension, coronary disease, history myocardial infarction: Home medications will be continued, avoid aspirin at this time due to rectal bleeding Chronic tobacco use: Patient counseled on cessation Chronic back pain: Continue pain control DVT prevention: Sequential compression devices, avoid chemical prophylaxis secondary to rectal bleeding This note was transcribed by romeo Campbell,. I, Dr. Tonny Padilla personally performed the history, physical exam, and medical decision making; and confirmed the accuracy of the information in the transcribed note. Authenticated by Dr. Tonny Padilla on 03/06/17 at 12:43. Discussed Condition With Patient and Physician Certification 2 Midnight Certification Type: Admission for Inpatient Services Order for Inpatient Services The services are ordered in accordance with Medicare regulations or non- Medicare payer requirements, as applicable. In the case of services not specified as inpatient-only, they are appropriately provided as inpatient services in accordance with the 2-midnight benchmark. Estimated LOS (days): 2 days is the estimated time the patient will need to remain in the hospital, assuming treatment plan goals are met and no additional complications. Post-Hospital Plan: Home Won Campbell Mar 06, 2017 12:42 Tonny Padilla MD Mar 06, 2017 12:43
[2017-03-06] MEDS: REMOVE OLD PATCH T-DERMAL SCH (13:15)
[2017-03-06] MEDS ORDERED: RESP: ALBUTEROL 2.5 MG/3 ML NEB (PRN) NEB (13:15)
[2017-03-06 15:24] LABS: HEMATOCRIT 36.5 % (39.0-51.0); REVIEW FLAG FINAL
[2017-03-06] MEDS: NICOTINE 21 MG/24 HR PATCH T-DERMAL SCH (15:28)
--- NOTE | 2017-03-06 17:26 | MB ---
cc: JESSICA FLORES M.D. DATE OF 04/23/1972 DATE OF CONSULTATION 03/06/2017 REASON FOR CONSULTATION GI bleed, abdominal pain, rectal bleeding. HISTORY OF THE PRESENT ILLNESS Thank you for the consultation. A 62-year-old male who has no significant medical as far as GI. The patient came complaining of small amounts of bright red blood per rectum and some abdominal discomfort. The patient denies any significant problem GI genao. He started having some cramping in the last 24 hours. The patient denies nausea and vomiting. He has no melena, he had a CT scan which showed possible colitis. The patient had an upper endoscopy and a colonoscopy about a year ago which was unremarkable. Hemoglobin is stable. REVIEW OF SYSTEMS All 12 point negative except history of present illness. PAST MEDICAL HISTORY Significant for: 1. Appendectomy. 2. Upper endoscopy and colonoscopy. 3. Hypertension. 4. Coronary artery disease. 5. Chronic back pain. 6. Myocardial infarction. MEDICATIONS Reviewed on the chart. ALLERGIES PENICILLIN. FAMILY HISTORY Significant for pneumonia and lung cancer. SOCIAL HISTORY The patient smokes one-half pack a day. No drug or alcohol. PHYSICAL EXAMINATION GENERAL: Alert, oriented in no acute distress. VITAL SIGNS: Stable at this time. HEENT: Pupils round and reactive to light. NECK: Supple. CHEST: Clear to auscultation and percussion. CARDIOVASCULAR: Regular rate and rhythm. ABDOMEN: Soft. Nondistended. Nontender. Positive bowel sounds. EXTREMITIES: No clubbing, cyanosis or edema. NEUROLOGIC: Intact. PSYCHOLOGIC: Appropriate. LABORATORY DATA White count 11.1, hemoglobin 12.1 down from 13.1, hematocrit 36.5, platelets 300. INR 1.0. AST 19, ALT 16. Total bilirubin 0.2. IMAGING CT scan showed suspicion of colitis involving the left side of the colon. Patent vascularity. ASSESSMENT AND PLAN Pleasant 62-year-old male with rectal bleeding, abnormal CT scan, possible colitis, could be infectious process even though the patient does not have diarrhea at this time. I recommend doing an colonoscopy. We discussed the procedure and complications and the patient is agreeable to have that done. This will be done tomorrow. We will prep the patient and do the procedure tomorrow. We will continue monitoring the hemoglobin. MD JULIO Bowen /4:59 PM /5:05 PM [facility]
[2017-03-06] MEDS ORDERED: PEG (High)/E-LYTE SOLN 4000 ML BTL PO ONE (17:30)
[2017-03-07] VITALS: BP 99/60; PULSE 81; RESP 18; TEMP 97.6; O2SAT 93
[2017-03-07] MEDS: CIPROFLOXACIN 400 MG PREMIX 200 ML IV SCH ×2 (00:14→13:03)
[2017-03-07 02:25] LABS: C. DIFF EPI 027 PRESUMPTIVE NEGATIVE (NEGATIVE)
[2017-03-07 04:00] VITALS: BP 132/76; PULSE 84; RESP 18; TEMP 97.9; O2SAT 98
[2017-03-07] MEDS: metroNIDAZOLE 500 MG INJ 100 ML IV SCH ×2 (05:32→11:40)
[2017-03-07 06:25] VITALS: BP 132/76; PULSE 84; RESP 18; TEMP 97.9; O2SAT 98
[2017-03-07] MEDS ORDERED: POVIDONE IODINE 5% (ANTISEPSIS KIT) 4 APPLICATIONS EACH NARE PRN (06:45)
[2017-03-07] MEDS ORDERED: INSULIN HUMAN REGULAR 1,000 UNITS/10 ML VIAL SQ PRN (06:45)
[2017-03-07] MEDS ORDERED: SODIUM CHLORID 0.9% 500 ML IV PRN (06:45)
[2017-03-07] MEDS ORDERED: CHLORHEXIDINE GLUCONATE 2 % 1 PACK (2 CLOTHS) TOPICAL PRN (06:45)
[2017-03-07] MEDS ORDERED: LACTATED RINGER'S 1000 ML IV PRN (06:45)
[2017-03-07] MEDS ORDERED: PROPOFOL 200 MG/20 ML AMP IV ONE (07:10)
--- NOTE | 2017-03-07 07:25 | GIPROC ---
[address], [address] COLONOSCOPY PROCEDURE REPORT EXAM DATE: 03/07/2017 PATIENT NAME: Jarrod Pope MR #: [id number] BIRTHDATE: 1955 ENDOSCOPIST: Amena Eastman MD ORDER #: [id number] WIRE FRAME MAKER: Deshawn Hanson and Donya Kenny STATUS: inpatient INDICATIONS: The patient is a 62 yr old male here for a colonoscopy due to anal bleeding PROCEDURE PERFORMED: Colonoscopy with biopsy Colonoscopy with polypectomy MEDICATIONS: None and Per Anesthesia. PREP QUALITY: good ESTIMATED BLOOD LOSS: None CONSENT: The patient understands the risks and benefits of the procedure and understands that these risks include, but are not limited to: sedation, allergic reaction, infection, perforation and/or bleeding. Alternative means of evaluation and treatment include, among others: physical exam, x-rays, and/or surgical intervention. The patient elects to proceed with this endoscopic procedure. medical equipment was checked for proper function. Hand hygiene and appropriate measures for infection prevention was taken. After the risks, benefits and alternatives of the procedure were thoroughly explained, Informed consent was verified, confirmed and timeout was successfully executed by the treatment team. A digital exam revealed no abnormalities of the rectum The Pentax [id number] endoscope was introduced through the anus and advanced to the cecum, which was identified by both the appendix and ileocecal valve. The instrument was then slowly withdrawn as the colon was fully examined. COLON FINDINGS: Small 5 mm polyp in the ascending colon removed by snare. Colitis in the descending and sigmoid colon C/W ischemia but can not r/o Ulcerative colitis. Retroflexed views revealed no abnormalities The scope was then completely withdrawn from the patient and the procedure terminated. ADVERSE EVENTS: There were no complications. IMPRESSIONS: 1. Small 5 mm polyp in the ascending colon removed by snare 2. Colitis in the descending and sigmoid colon C/W ischemia but can not r/o Ulcerative colitis 3. Retroflexed views revealed no abnormalities 4. Revealed no abnormalities of the rectum RECOMMENDATIONS: 1. Await biopsy results. Biopsy results will not be ready for 7-10 days. If you don't hear from us in two weeks, call our office for results. 2. Yearly hemoccult 3. RTC in 4 wks RECALL: Return 2 months Colonoscopy Amena Eastman MD eSigned: Amena Eastman MD 03/07/2017 7:24 AM cc:
--- NOTE | 2017-03-07 07:28 | HHI.GIFU ---
Subjective Remarks Patient is laying in bed comfortable, no active bleeding since yesterday, tolerated prep well Objective Vitals I&O Vital Signs Date Time Temp Pulse Resp B/P (MAP) Pulse Ox O2 Delivery O2 Flow Rate FiO2 03/07/17 06:25 97.9 84 18 132/76 (94) 98 03/07/17 04:00 97.9 84 18 132/76 (94) 98 03/07/17 00:00 97.6 81 18 99/60 (73) 93 03/06/17 21:30 94 Nasal Cannula 2.00 03/06/17 20:00 97.0 75 18 131/71 (91) 100 03/06/17 16:00 97.5 75 18 105/66 (79) 95 03/06/17 13:22 20 03/06/17 12:00 96.6 82 18 105/64 (78) 94 03/06/17 08:00 96.8 77 19 142/81 (101) 95 I/O 03/06/17 03/06/17 03/06/17 03/07/17 03/07/17 03/07/17 06:59 14:59 22:59 06:59 14:59 22:59 Intake Total 300 ml 360 ml 615 ml Output Total 400 ml Balance -100 ml 360 ml 615 ml Intake Oral 0 ml 360 ml IV Total 300 ml 615 ml Output Urine Total 400 ml # Voids 4 2 # Bowel Movements 2 0 Laboratory Laboratory Tests Test 03/06/17 07:50 03/06/17 15:05 03/06/17 22:25 Hemoglobin 13.3 12.1 Hematocrit 40.8 36.5 Blood Urea Nitrogen 8 Creatinine 0.86 Random Glucose 92 Calcium Level 8.1 Sodium Level 139 Potassium Level 3.8 Chloride Level 104 Carbon Dioxide Level 29.2 Anion Gap 6 Estimat Glomerular Filtration Rate 90 Stool C. difficile Toxin (PCR) NEGATIVE Stl C. difficile Toxin Epiderm 027 PRESUMPTIVE NEGATIVE Date/Time Source Procedure Growth Status 03/06/17 22:25 Stool Stool Pending Received Physical Exam HEENT: Pupils round and reactive to light; normocephalic; atraumatic; no jaundice. Throat is clear. NECK: Neck is supple, no JVD, no lymphadenopathy. CHEST: Chest is clear to auscultation and percussion. CARDIAC: Regular rate and rhythm with no murmur gallop or rubs. ABDOMEN: Soft, nondistended, nontender; no hepatosplenomegaly; bowel sounds are present in all four quadrants. EXTREMITIES: No clubbing, cyanosis, or edema. SKIN: Normal; no rash; no jaundice. GORE STITCHER: No focal deficits; alert and oriented times three. Assessment and Plan Plan Patient has rectal bleeding and some abdominal discomfort, colonoscopy was done this morning, showed small polyp removed by snare and erythema with ulcerations in the descending colon and sigmoid consistent with colitis most likely ischemic colitis versus ulcerative colitis less likely biopsy were done Recommendation Await biopsy results Repeat colonoscopy in 2 months Return to clinic in 1 week Start clear liquid advance as tolerated Amena Eastman MD Mar 07, 2017 07:28
[2017-03-07] MEDS: NS + KCL 20 MEQ INJ 1,000 ML IV SCH (07:50)
[2017-03-07 08:00] VITALS: BP 120/63; PULSE 71; RESP 18; TEMP 97.3; O2SAT 96
[2017-03-07 08:30] VITALS: O2SAT 96
[2017-03-07] MEDS: REMOVE OLD PATCH T-DERMAL SCH (08:32)
[2017-03-07] MEDS: NICOTINE 21 MG/24 HR PATCH T-DERMAL SCH (08:32)
[2017-03-07] MEDS: SODIUM CHLORIDE 0.9% FLUSH 10 ML FLUSH IV FLUSH SCH (08:33)
[2017-03-07 12:00] VITALS: BP 112/62; PULSE 76; RESP 18; TEMP 97.4; O2SAT 94
--- NOTE | 2017-03-07 12:33 | HHI.DCPOC ---
Discharge Care Plan Diagnosis: (1) Colitis Goals to Promote Your Health * To prevent worsening of your condition and complications * To maintain your health at the optimal level Directions to Meet Your Goals Take your medications as prescribed Follow your dietary instruction Follow activity as directed Keep your appointments as scheduled Take your immunizations and boosters as scheduled If your symptoms worsen call your PCP, if no PCP go to Urgent Care Center or Emergency Room Smoking is Dangerous to Your Health. Avoid second hand smoke Call the 24-hour hour crisis hotline for domestic abuse at Lizeth Cruz MD Mar 07, 2017 12:33
[2017-03-07] MEDS ORDERED: METR500T10 PO (12:34)
[2017-03-07] MEDS ORDERED: CIPR500T2 PO (12:34)
--- NOTE | 2017-03-07 12:40 | HHI.DS ---
Discharge Summary Admission Date Mar 05, 2017 at 22:58 Discharge Date: Mar 07, 2017 Admitting Diagnosis Hematochezia; L Colon Colitis (1) Colitis ICD Code: K52.9 - Noninfective gastroenteritis and colitis, unspecified Diagnosis: Principal Status: Acute (2) Hematochezia ICD Code: K92.1 - Melena Diagnosis: Principal Status: Acute Procedures Endoscopy: ischemic colitis V UC, Bx pending Brief History - From Admission 62-year-old male with known history of chronic back pain, hypertension, coronary artery disease, history of myocardial infarction who presented to hospital complaining of bright red blood per rectum, along with some mild lower abdominal cramping for approximately 10 other episodes. He denies any nausea, vomiting, melena. He was found to have colitis by CT and he was started on empirical IV antibiotics and recommended admission with GI consultation. CBC/BMP: 03/06/17 1505 03/06/17 0750 Significant Findings Laboratory Tests Test 03/05/17 19:29 03/05/17 23:39 03/06/17 03:14 03/06/17 07:50 White Blood Count 11.1 TH/MM3 (4.0-11.0) Activated Partial Thromboplast Time 30.9 SEC (24.3-30.1) Albumin 3.3 GM/DL (3.4-5.0) Calcium Level 7.7 MG/DL (8.5-10.1) 8.1 MG/DL (8.5-10.1) Alkaline Phosphatase 119 U/L (45-117) Estimat Glomerular Filtration Rate 76 ML/MIN (>89) Hemoglobin 12.5 GM/DL (13.0-17.0) Hematocrit 37.7 % (39.0-51.0) Test 03/06/17 15:05 03/06/17 22:25 Hemoglobin 12.1 GM/DL (13.0-17.0) Hematocrit 36.5 % (39.0-51.0) Imaging Last Impressions Abdomen/Pelvis CT 03/05/17 0000 Signed Impressions: Service Date/Time: Sunday, March 05, 2017 20:21 - CONCLUSION: 1. Suspected colitis involving much of the left side of the colon. Cause is not known. 2. The celiac, SMA, and QUIRINO are all patent. There is some mild atherosclerotic change seen at the SMA. A flow-limiting stenosis is not clearly seen. 3. Atherosclerotic change seen throughout the arterial system including a focal area of prominent plaque and/or dissection at the posterior distal abdominal aorta. This is unchanged from the prior exam. 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 4. Gallstones. Figueroa Aparicio MD PE at Discharge GENERAL: This is a well-nourished, well-developed patient, in no apparent distress. CARDIOVASCULAR: Regular rate and rhythm without murmurs, gallops, or rubs. RESPIRATORY: Clear to auscultation. Breath sounds equal bilaterally. No wheezes , rales, or rhonchi. GASTROINTESTINAL: Abdomen soft, non-tender, nondistended. Normal active bowel sounds MUSCULOSKELETAL: Extremities without clubbing, cyanosis, or edema. NEURO: Alert & Oriented x4 to person, place, time, situation. Moves all ext x4 Pt update on day of discharge Hemoglobin remained stable patient was scoped and recommended for follow up due to concerns for ischemic colitis v UC. Aspirin will continue and Patient will need GI and Vascular follow up Hospital Course patient seen and evaluated for Pt Condition on Discharge: Good Discharge Disposition: Discharge Home Discharge Time: > 30 minutes Discharge Instructions DIET: Follow Instructions for: As Tolerated, No Restrictions Activities you can perform: Regular-No Restrictions Follow up Referrals: Gastroenterology - 1 Week PCP Follow-up - 1 Week New Medications: Ciprofloxacin (Ciprofloxacin) 500 Mg Tab 500 MG PO BID for Infection for 7 Days, #14 TAB 0 Refills Metronidazole (Metronidazole) 500 Mg Tab 500 MG PO TID for Infection, #21 TAB 0 Refills Continued Medications: Alprazolam (Xanax) 2 Mg Tab 2 MG PO HS PRN for ANXIETY, TAB 0 Refills Amlodipine (Amlodipine) 10 Mg Tab 10 MG PO DAILY for Blood Pressure Management, #30 TAB 0 Refills Aspirin (Aspirin) 325 Mg Tab 325 MG PO DAILY, #30 TAB 0 Refills Oxycodone (Oxycodone) 20 Mg Tab 20 MG PO QID PRN for PAIN, TAB 0 Refills Lizeth Cruz MD Mar 07, 2017 12:40
== END 2017-03-07 17:39 | disposition home or self-care (01) ==
LOC: PHED 17:04 → PHEDA 22:58 → INTOOBSV 22:58 → PH3A 03-06 03:29
PROVIDERS: ADMIT Hospitalist; ATTEND Hospitalist
DX: K52.9 Noninfective gastroenteritis and colitis, unspecified (principal); D12.2 Benign neoplasm of ascending colon; K21.9 Gastro-esophageal reflux disease without esophagitis; I25.10 Atherosclerotic heart disease of native coronary artery without angina pectoris; I10 Essential (primary) hypertension; I25.2 Old myocardial infarction; Z79.82 Long term (current) use of aspirin; M19.90 Unspecified osteoarthritis, unspecified site; M54.9 Dorsalgia, unspecified
CPT/HCPCS: 00810; 45385; 74174; 80048; 80053; 83605; 85014; 85018; 85025; 85610; 85730; 86850; 86900; 86901; 87493; 87506; 88305; 96361; 96365; 96366; 96375; 99285; G0378; J0744; J2060; J2270; J2405; J3480; J7030; J7120; Q9967

== ENCOUNTER 2017-04-11 12:29 | Emergency (ER) | payer MEDICAID, OTHER ==
[~2017-04-11] VITALS: Ht 167.6 cm; Wt 67.0 kg
[~2017-04-11 12:29] MED LIST changes: +CIPR500T2 PO; -CYCL1TAB29 PO; +METR500T10 PO; +OXYC-396 PO; -PANT20 PO; -ZITHTAB PO
[2017-04-11 14:07] VITALS: BP 148/74; PULSE 74; RESP 18; TEMP 98.9; O2SAT 98
[2017-04-11 14:11] VITALS: BP 148/74; PULSE 82; RESP 18; TEMP 98.9; O2SAT 96
[2017-04-11] MEDS ORDERED: SODIUM CHLORIDE 0.9% FLUSH 10 ML FLUSH IVF PRN (14:15)
[2017-04-11] MEDS ORDERED: DICYCLOMINE HCL 20 MG/2 ML VIAL IM ONE (14:15)
[2017-04-11 14:18] VITALS: O2SAT 98
--- NOTE | 2017-04-11 14:38 | RADRPT ---
EXAM DATE/TIME: 04/11/2017 14:33 [facility] COMPARISON: No previous studies available for comparison. INDICATIONS : Bloody stool MEDICAL HISTORY : SURGICAL HISTORY : Appendectomy. ENCOUNTER: Initial ACUITY: 1 day PAIN SCORE: 9/10 LOCATION: Right abdomen FINDINGS: A single erect view of the abdomen demonstrates the lower lungs to be clear. No evidence of free int raperitoneal gas. The visualized bowel loops are unremarkable. CONCLUSION: 1. No evidence of obstruction. Yoni Yoder MD on April 11, 2017 at 14:37 Board Certified Radiologist. This report was verified electronically.
[2017-04-11 14:39] LABS: AUTOMATED NEUTROPHIL # 10.7 TH/MM3 (1.8-7.7); BASOPHIL # 0.1 TH/MM3 (0-0.2); BASOPHIL % 0.7 % (0.0-2.0); HEMATOCRIT 39.9 % (39.0-51.0); HEMO FLAGS DIFF FINAL; LYMPH % 11.1 % (9.0-44.0); LYMPHOCYTE # 1.4 TH/MM3 (1.0-4.8); MEAN CELL VOLUME 86.2 FL (80.0-100.0); MEAN CORPUSCULAR HGB CONC 33.6 % (32.0-36.0); MONO % 4.5 % (0.0-8.0); NEUT % 83.7 % (16.0-70.0); PLATELET COUNT 303 TH/MM3 (150-450); RED BLOOD COUNT 4.62 MIL/MM3 (4.50-5.90); RED CELL DISTRIBUTION WIDTH 14.2 % (11.6-17.2); WHITE BLOOD COUNT 12.8 TH/MM3 (4.0-11.0)
[2017-04-11 15:08] LABS: ALKALINE PHOSPHATASE 118 U/L (45-117); ALT (GPT) 17 U/L (12-78); ANION GAP 8 MEQ/L (5-15); AST (GOT) 16 U/L (15-37); BICARBONATE 27.9 MEQ/L (21.0-32.0); BLOOD UREA NITROGEN 15 MG/DL (7-18); CHLORIDE 96 MEQ/L (98-107); GLOMERULAR FILTRATION RATE 64 ML/MIN (>89); POTASSIUM 3.6 MEQ/L (3.5-5.1); SODIUM (NA) 132 MEQ/L (136-145); TOTAL BILIRUBIN ADULT 0.3 MG/DL (0.2-1.0)
--- NOTE | 2017-04-11 15:39 | PD ---
HPI Chief Complaint: GI Complaint Time Seen by Provider: 13:57 Travel History International Travel<30 days: No Contact w/Intl Traveler<30days: No Traveled to known affect area: No History of Present Illness HPI This is a 62-year-old gentle who presents today with complaints of blood in his stool after having a bowel movement this morning. Patient states he woke up early this morning with severe crampy lower abdominal pain. He reports that he had to strain heavily over the bowel movement. He states shortly after their he noted blood in his toilet. He denies any active bleeding in this time. The patient was seen in February for bloody stools and diagnosed with colitis at that time. He denies any fevers, chills. He denies any hematemesis or vomiting. There are no other complaints the time of my examination. PFSH Past Medical History Hx Anticoagulant Therapy: Yes Arthritis: Yes (back) Asthma: No Autoimmune Disease: No Anxiety: Yes Depression: No Heart Rhythm Problems: No Cancer: No Cardiac Catheterization: Yes (1999) Cardiovascular Problems: Yes (HTN) High Cholesterol: No (unknown no meds being taken) Chemotherapy: No Chest Pain: Yes Congestive Heart Failure: No COPD: No Cerebrovascular Accident: No Coronary Artery Disease: Yes Diabetes: No Diminished Hearing: No Endocrine: No Gastrointestinal Disorders: Yes (ulcerative colitis) GERD: Yes Genitourinary: No Headaches: No Hiatal Hernia: No Heparin Induced Thrombocytopen: No Hypertension: Yes Immune Disorder: No Implanted Vascular Access Dvce: No Kidney Stones: No Musculoskeletal: Yes Neurologic: No Psychiatric: Yes Reproductive: No Respiratory: No Immunizations Current: Yes Migraines: No Myocardial Infarction: Yes (1999) Radiation Therapy: No Renal Failure: No Seizures: No Sickle Cell Disease: No Sleep Apnea: No Thyroid Disease: No Ulcer: No ?: Not Past Surgical History Abdominal Surgery: Yes (appy around 1979) AICD: Yes Appendectomy: Yes Arteriovenous Shunt: No Cardiac Surgery: Yes (heart cath) Ear Surgery: No Endocrine Surgery: No Eye Surgery: No Genitourinary Surgery: No Gynecologic Surgery: No Insulin Pump: No Joint Replacement: No Neurologic Surgery: No Oral Surgery: No Pacemaker: No Thoracic Surgery: No Other Surgery: Yes (right wirst fusion, 0 ROM ) Social History Alcohol Use: No Tobacco Use: Yes (1 1/2PPD) Substance Use: No Allergies-Medications (Allergen,Severity, Reaction): Coded Allergies: penicillin G (Unverified Allergy, Intermediate, HIVES, 04/11/17) Reported Meds & Prescriptions Reported Meds & Active Scripts Active Flagyl (Metronidazole) 500 Mg Tab 500 Mg PO TID 7 Days Cipro (Ciprofloxacin HCl) 500 Mg Tab 500 Mg PO BID 7 Days Bentyl (Dicyclomine HCl) 10 Mg Cap 10 Mg PO TID PRN 7 Days Metronidazole 500 Mg Tab 500 Mg PO TID Ciprofloxacin (Ciprofloxacin HCl) 500 Mg Tab 500 Mg PO BID 7 Days Reported Oxycodone (Oxycodone HCl) 20 Mg Tab 20 Mg PO QID PRN Xanax (Alprazolam) 2 Mg Tab 2 Mg PO HS PRN Aspirin 325 Mg Tab 325 Mg PO DAILY Amlodipine (Amlodipine Besylate) 10 Mg Tab 10 Mg PO DAILY Review of Systems Except as stated in HPI: all other systems reviewed are Neg General / Constitutional: No: Fever, Chills HENT: No: Headaches, Neck Pain Cardiovascular: No: Chest Pain or Discomfort, Palpitations, Tachycardia Respiratory: No: Cough, Shortness of Breath, Hemoptysis Gastrointestinal: Positive: Abdominal Pain, Hematochezia, No: Nausea, Vomiting , Diarrhea Genitourinary: No: Frequency, Dysuria Musculoskeletal: No: Weakness, Pain Neurologic: No: Weakness, Dizziness, Ataxia Physical Exam Narrative GENERAL: Well-nourished, well-developed patient in no acute distress. SKIN: Focused skin assessment warm/dry. HEAD: Normocephalic/atraumatic. EYES: No scleral icterus. No injection or drainage. NECK: Supple, trachea midline. CARDIOVASCULAR: Regular rate and rhythm without murmurs, gallops, or rubs. RESPIRATORY: Breath sounds equal bilaterally. No accessory muscle use. GASTROINTESTINAL: Abdomen soft, nondistended. The patient has subjective cramping in his lower abdominal segment. There is no rebound or guarding. No pulsatile masses. RECTAL EXAM: No masses or tenderness, stool is brown and tested slight heme positive. No bright red blood. There were external hemorrhoids that were not actively bleeding. MUSCULOSKELETAL: No cyanosis, or edema. NEUROLOGICAL: Awake and alert. Cranial nerves II through XII intact. Motor grossly within normal limits. Five out of 5 muscle strength in all muscle groups. Normal speech. Data Data Last Documented VS Vital Signs Date Time Temp Pulse Resp B/P (MAP) Pulse Ox O2 Delivery O2 Flow Rate FiO2 04/11/17 14:18 98 Room Air 04/11/17 14:11 98.9 82 18 Orders Orders Complete Blood Count With Diff (04/11/17 14:09) Comprehensive Metabolic Panel (04/11/17 14:09) Lipase (04/11/17 14:09) Abdomen, Upright Only (04/11/17 14:09) Ecg Monitoring (04/11/17 14:09) Iv Access Insert/Monitor (04/11/17 14:09) Oximetry (04/11/17 14:09) Sodium Chloride 0.9% Flush (Ns Flush) (04/11/17 14:15) Dicyclomine Inj (Bentyl Inj) (04/11/17 14:15) Labs Laboratory Tests Test 04/11/17 14:10 White Blood Count 12.8 TH/MM3 Red Blood Count 4.62 MIL/MM3 Hemoglobin 13.4 GM/DL Hematocrit 39.9 % Mean Corpuscular Volume 86.2 FL Mean Corpuscular Hemoglobin 29.0 PG Mean Corpuscular Hemoglobin Concent 33.6 % Red Cell Distribution Width 14.2 % Platelet Count 303 TH/MM3 Mean Platelet Volume 7.0 FL Neutrophils (%) (Auto) 83.7 % Lymphocytes (%) (Auto) 11.1 % Monocytes (%) (Auto) 4.5 % Eosinophils (%) (Auto) 0.0 % Basophils (%) (Auto) 0.7 % Neutrophils # (Auto) 10.7 TH/MM3 Lymphocytes # (Auto) 1.4 TH/MM3 Monocytes # (Auto) 0.6 TH/MM3 Eosinophils # (Auto) 0.0 TH/MM3 Basophils # (Auto) 0.1 TH/MM3 CBC Comment DIFF FINAL Differential Comment Blood Urea Nitrogen 15 MG/DL Creatinine 1.16 MG/DL Random Glucose 126 MG/DL Total Protein 7.8 GM/DL Albumin 3.6 GM/DL Calcium Level 8.6 MG/DL Alkaline Phosphatase 118 U/L Aspartate Amino Transf (AST/SGOT) 16 U/L Alanine Aminotransferase (ALT/SGPT) 17 U/L Total Bilirubin 0.3 MG/DL Sodium Level 132 MEQ/L Potassium Level 3.6 MEQ/L Chloride Level 96 MEQ/L Carbon Dioxide Level 27.9 MEQ/L Anion Gap 8 MEQ/L Estimat Glomerular Filtration Rate 64 ML/MIN Lipase 125 U/L [facility] Medical Decision Making Medical Screen Exam Complete: Yes Emergency Medical Condition: Yes Differential Diagnosis GI bleed versus colitis versus diverticulitis Narrative Course 62-year-old gentleman with a history of clot is, who presents today with blood in his stool with abdominal cramps. The patient denies any fevers, chills. His white blood cell count was slightly elevated at just above 12. He has a soft nonsurgical abdomen on exam. There is no evidence of free air on his plain x-ray. His H&H is stable. His blood sugar slightly elevated at just above 120. He'll be discharged with a prescription for Cipro and Flagyl. He also be given a prescription for Bentyl. He'll be admitted for referral placed for GI. He is instructed return of he develops any worsening pain, fevers chills, or any other reason the concerns. Diagnosis Primary Impression: Abdominal pain Additional Impressions: History of colitis Heme positive stool Additional Instructions: [place] diet. Return if worse pain, fevers chills, or any other reason. Med/Other Pt SpecificInfo: Prescription(s) given Scripts Metronidazole (Flagyl) 500 Mg Tab 500 MG PO TID for Infection for 7 Days, TAB 0 Refills Prov: Escobar Mcgowan MD 04/11/17 Ciprofloxacin (Cipro) 500 Mg Tab 500 MG PO BID for Infection for 7 Days, #14 TAB 0 Refills Prov: Escobar Mcgowan MD 04/11/17 Dicyclomine (Bentyl) 10 Mg Cap 10 MG PO TID Y for Bowel Management for 7 Days, CAP 0 Refills Prov: Escobar Mcgowan MD 04/11/17 Disposition: 01 DISCHARGE HOME Condition: Stable Escobar Mcgowan MD Apr 11, 2017 15:39
[2017-04-11] MEDS ORDERED: CIPR-9 PO (15:41)
[2017-04-11] MEDS ORDERED: DICY10 PO (15:41)
[2017-04-11] MEDS ORDERED: METR-1 PO (15:41)
[2017-04-11 16:20] VITALS: BP 122/63
== END 2017-04-11 16:21 | disposition home or self-care (01) ==
LOC: NEPC 12:29
DX: R10.9 Unspecified abdominal pain (principal); K92.1 Melena; I10 Essential (primary) hypertension; I25.10 Atherosclerotic heart disease of native coronary artery without angina pectoris; K21.9 Gastro-esophageal reflux disease without esophagitis; I25.2 Old myocardial infarction; M19.90 Unspecified osteoarthritis, unspecified site; F41.9 Anxiety disorder, unspecified; F17.200 Nicotine dependence, unspecified, uncomplicated
CPT/HCPCS: 74000; 80053; 83690; 85025; 96372; 99284; J0500

== ENCOUNTER 2017-08-08 12:47 | Emergency (ER) | payer SELFPAY ==
[~2017-08-08] VITALS: Ht 167.6 cm; Wt 68.5 kg
[~2017-08-08 12:47] MED LIST changes: +ASPI-183 PO; -ASPI325T PO; +CIPR-9 PO; +DICY10 PO; +METR-1 PO; +METR1TAB76 PO; -METR500T10 PO
[2017-08-08 13:04] VITALS: BP 148/64; PULSE 80; RESP 16; TEMP 97.6; O2SAT 96
[2017-08-08] MEDS ORDERED: TYLETAB34 PO (14:23)
--- NOTE | 2017-08-08 14:27 | PD ---
HPI Chief Complaint: Musculoskeletal Complaint Time Seen by Provider: 14:18 Travel History International Travel<30 days: No Contact w/Intl Traveler<30days: No Traveled to known affect area: No History of Present Illness HPI 62-year-old male presents for evaluation of left hip and left-sided neck pain. Symptoms started 2 weeks ago. The pain is a sharp pain that is worse when he is walking in his left hip and worse when he is turning his neck and his left neck. He has not been using any medications for symptom relief. He denies any radicular symptoms, numbness or tingling or weakness in extremities, chest pain , abdominal pain, headache. No other complaints at this time. PFSH Past Medical History Hx Anticoagulant Therapy: Yes Arthritis: Yes (back) Asthma: No Autoimmune Disease: No Anxiety: Yes Depression: No Heart Rhythm Problems: No Cancer: No Cardiac Catheterization: Yes (1999) Cardiovascular Problems: Yes (HTN) High Cholesterol: No (unknown no meds being taken) Chemotherapy: No Chest Pain: Yes Congestive Heart Failure: No COPD: No Cerebrovascular Accident: No Coronary Artery Disease: Yes Diabetes: No Diminished Hearing: No Endocrine: No Gastrointestinal Disorders: Yes (ulcerative colitis) GERD: Yes Genitourinary: No Headaches: No Hiatal Hernia: No Heparin Induced Thrombocytopen: No Hypertension: Yes Immune Disorder: No Implanted Vascular Access Dvce: No Kidney Stones: No Musculoskeletal: Yes Neurologic: No Psychiatric: Yes Reproductive: No Respiratory: No Immunizations Current: Yes Migraines: No Myocardial Infarction: Yes (1999) Radiation Therapy: No Renal Failure: No Seizures: No Sickle Cell Disease: No Sleep Apnea: No Thyroid Disease: No Ulcer: No Past Surgical History Abdominal Surgery: Yes (appy around 1979) AICD: Yes Appendectomy: Yes Arteriovenous Shunt: No Cardiac Surgery: Yes (heart cath) Ear Surgery: No Endocrine Surgery: No Eye Surgery: No Genitourinary Surgery: No Gynecologic Surgery: No Insulin Pump: No Joint Replacement: No Neurologic Surgery: No Oral Surgery: No Pacemaker: No Thoracic Surgery: No Other Surgery: Yes (right wirst fusion, 0 ROM ) Social History Alcohol Use: No Tobacco Use: Yes (1 PD) Substance Use: No Allergies-Medications (Allergen,Severity, Reaction): Coded Allergies: penicillin G (Unverified Allergy, Intermediate, HIVES, 08/08/17) Reported Meds & Prescriptions Reported Meds & Active Scripts Active Tylenol-Codeine #3 (Acetaminophen-Codeine) 300-30 mg Tab 1 Tab PO Q4H PRN Flagyl (Metronidazole) 500 Mg Tab 500 Mg PO TID 7 Days Cipro (Ciprofloxacin HCl) 500 Mg Tab 500 Mg PO BID 7 Days Bentyl (Dicyclomine HCl) 10 Mg Cap 10 Mg PO TID PRN 7 Days Metronidazole 500 Mg Tab 500 Mg PO TID Ciprofloxacin (Ciprofloxacin HCl) 500 Mg Tab 500 Mg PO BID 7 Days Reported Oxycodone (Oxycodone HCl) 20 Mg Tab 20 Mg PO QID PRN Xanax (Alprazolam) 2 Mg Tab 2 Mg PO HS PRN Aspirin 325 Mg Tab 325 Mg PO DAILY Amlodipine (Amlodipine Besylate) 10 Mg Tab 10 Mg PO DAILY Review of Systems Except as stated in HPI: all other systems reviewed are Neg Physical Exam Narrative GENERAL: Well-nourished male in no acute distress ambulatory in the ED SKIN: Warm and dry. HEAD: Atraumatic. Normocephalic. EYES: Pupils equal and round. No scleral icterus. No injection or drainage. ENT: No nasal bleeding or discharge. Mucous membranes pink and moist. NECK: Trachea midline. No JVD. CARDIOVASCULAR: Regular rate and rhythm. No murmur appreciated. RESPIRATORY: No accessory muscle use. Clear to auscultation. Breath sounds equal bilaterally. GASTROINTESTINAL: Abdomen soft, non-tender, nondistended. Hepatic and splenic margins not palpable. MUSCULOSKELETAL: No obvious deformities. No clubbing. No cyanosis. No edema. No reproducible tenderness to palpation along the neck or back, no reproducible tenderness to palpation to the hips or pelvis. Left hip pain is reproduced with flexion and extension of the left hip. Patient maintains full range of motion of the extremities and neck. NEUROLOGICAL: Awake and alert. No obvious cranial nerve deficits. Motor grossly within normal limits. Normal speech. PSYCHIATRIC: Appropriate mood and affect; insight and judgment normal. Data Data Last Documented VS Vital Signs Date Time Temp Pulse Resp B/P (MAP) Pulse Ox O2 Delivery O2 Flow Rate FiO2 08/08/17 13:04 97.6 80 16 148/64 (92) 96 Orders Orders Ed Discharge Order (08/08/17 14:24) MDM Medical Decision Making Medical Screen Exam Complete: Yes Emergency Medical Condition: Yes Medical Record Reviewed: Yes Differential Diagnosis Degenerative disc disease, osteoarthritis, septic arthritis, herniated mucous pulposus, spinal stenosis, trochanteric bursitis Narrative Course 62-year-old male presents with 2 weeks left-sided neck pain and left hip pain which is reproduced when walking and moving. I suspect musculoskeletal pain, likely combination of osteoarthritis and muscle stiffness. The patient be given a short course of analgesics and encouraged to follow-up with his primary care physician if symptoms persist. Diagnosis Primary Impression: Neck pain Additional Impression: Left hip pain Additional Instructions: Follow-up with primary care physician. Return for any emergent medical conditions. Med/Other Pt SpecificInfo: Prescription(s) given Scripts Acetaminophen-Codeine (Tylenol-Codeine #3) 300-30 mg Tab 1 TAB PO Q4H Y for PAIN, #15 TAB 0 Refills Prov: Roger Mejia MD 08/08/17 Disposition: 01 DISCHARGE HOME Condition: Stable Howard Isidro Aug 08, 2017 14:27
== END 2017-08-08 15:04 | disposition home or self-care (01) ==
LOC: PHED 12:47 → PHEFT 15:04
DX: M54.2 Cervicalgia (principal); M25.552 Pain in left hip; I10 Essential (primary) hypertension; F17.200 Nicotine dependence, unspecified, uncomplicated
CPT/HCPCS: 99283

== ENCOUNTER 2017-09-20 10:56 | Emergency (ER) | payer SELFPAY ==
[~2017-09-20] VITALS: Ht 167.6 cm; Wt 66.0 kg
[~2017-09-20 10:56] MED LIST changes: -CIPR-9 PO; -CIPR500T2 PO; -DICY10 PO; -METR-1 PO; -METR1TAB76 PO; -OXYC-396 PO
[2017-09-20 11:01] VITALS: BP 135/79; PULSE 78; RESP 16; TEMP 97.6; O2SAT 95
[2017-09-20] MEDS ORDERED: ASPI-516 CHEW (11:09)
[2017-09-20] MEDS ORDERED: predniSONE 20 MG TAB PO ONE (11:15)
--- NOTE | 2017-09-20 11:28 | PD ---
HPI Chief Complaint: Cold / Flu Symptoms Time Seen by Provider: 11:12 Travel History International Travel<30 days: No Contact w/Intl Traveler<30days: No Traveled to known affect area: No History of Present Illness HPI 62-year-old male with history of HTN, COPD, current smoker presents to the ED for evaluation of 4 day history of sinus congestion, clear rhinorrhea, nonproductive cough, fevers. Patient states he measured a fever of 102.0 3 days ago. He denies headaches, ear pain, sore throat, nausea, vomiting. He denies history of seasonal allergies. He did not receive this years flu shot. He treated his symptoms at home with albuterol inhaler and Tylenol. He is not oxygen dependent at home. PFSH Past Medical History Hx Anticoagulant Therapy: Yes (asa 81mg) Arthritis: Yes (back) Asthma: No Autoimmune Disease: No Anxiety: Yes Depression: No Heart Rhythm Problems: No Cancer: No Cardiac Catheterization: Yes (1999) Cardiovascular Problems: Yes (htn on meds, AR x 1) High Cholesterol: No (unknown no meds being taken) Chemotherapy: No Chest Pain: Yes Congestive Heart Failure: No COPD: No Cerebrovascular Accident: No Coronary Artery Disease: Yes Diabetes: No Diminished Hearing: No Endocrine: No Gastrointestinal Disorders: Yes (ulcerative colitis) GERD: Yes Genitourinary: No Headaches: No Hiatal Hernia: No Heparin Induced Thrombocytopen: No Hypertension: Yes Immune Disorder: No Implanted Vascular Access Dvce: No Kidney Stones: No Musculoskeletal: Yes Neurologic: No Psychiatric: Yes Reproductive: No Respiratory: Yes (copd) Immunizations Current: Yes Migraines: No Myocardial Infarction: Yes (1999) Radiation Therapy: No Renal Failure: No Seizures: No Sickle Cell Disease: No Sleep Apnea: No Thyroid Disease: No Ulcer: No Influenza Vaccination: No Past Surgical History Abdominal Surgery: Yes (appy around 1979) AICD: Yes Appendectomy: Yes Arteriovenous Shunt: No Cardiac Surgery: Yes (heart cath) Ear Surgery: No Endocrine Surgery: No Eye Surgery: No Genitourinary Surgery: No Gynecologic Surgery: No Insulin Pump: No Joint Replacement: No Neurologic Surgery: No Oral Surgery: No Pacemaker: No Thoracic Surgery: No Other Surgery: Yes (right wirst fusion, 0 ROM ) Social History Alcohol Use: No Tobacco Use: Yes (1 PPD) Substance Use: No Allergies-Medications (Allergen,Severity, Reaction): Coded Allergies: penicillin G (Unverified Allergy, Intermediate, HIVES, 09/20/17) Reported Meds & Prescriptions Reported Meds & Active Scripts Active Proair Hfa 8.5 GM Inh (Albuterol Sulfate) 90 Mcg/Act Aer 2 Puff INH Q4-6H PRN 108 mcg/actuation Tessalon Perles (Benzonatate) 100 Mg Cap 200 Mg PO TID PRN Azithromycin 250 Mg Tab 250 Mg PO DIRECTED Take 2 tabs (500 mg) on day 1 then 1 tab daily x 4 days. Prednisone 20 Mg Tab 40 Mg PO DAILY 5 Days Take 40 mg (2 tablets) daily for 5 days Reported Aspirin 81 Mg Chew 81 Mg CHEW DAILY Amlodipine (Amlodipine Besylate) 10 Mg Tab 10 Mg PO DAILY Review of Systems Except as stated in HPI: all other systems reviewed are Neg Physical Exam Narrative GENERAL: Well-nourished, well-developed white male in no acute distress. SKIN: Warm and dry. HEAD: Normocephalic. Atraumatic. EYES: No scleral icterus. No injection or drainage. PERRLA. EOMI. ENT: Pearly fowler tympanic membranes bilaterally. Nasal mucosa is moist. Oropharynx without erythema, edema or exudate. NECK: Supple, trachea midline. No JVD or lymphadenopathy. CARDIOVASCULAR: Regular rate and rhythm without murmurs, gallops, or rubs. RESPIRATORY: Breath sounds tight, occasional crackles. End expiratory wheezing bilaterally. No accessory muscle use. Dry cough. GASTROINTESTINAL: Abdomen soft, non-tender, nondistended. + Bowel sounds MUSCULOSKELETAL: No cyanosis, or edema. BACK: Nontender without obvious deformity. No CVA tenderness. Data Data Last Documented VS Vital Signs Date Time Temp Pulse Resp B/P (MAP) Pulse Ox O2 Delivery O2 Flow Rate FiO2 09/20/17 11:33 96 21 09/20/17 11:10 Room Air 09/20/17 11:01 97.6 78 16 135/79 (97) Orders Orders Influenzae A/B Antigen (09/20/17 11:12) Chest, Single Ap (09/20/17 11:12) Albuterol-Ipratropium Neb (Duoneb Neb) (09/20/17 11:15) Prednisone (Deltasone) (09/20/17 11:15) MDM Medical Decision Making Medical Screen Exam Complete: Yes Emergency Medical Condition: Yes Differential Diagnosis Viral syndrome versus influenza versus COPD exacerbation versus pneumonia versus other Narrative Course 62-year-old male with history of COPD, current smoker presents to the ED for evaluation of 4 day history of sinus congestion, clear rhinorrhea, nonproductive cough, fevers. Does not use oxygen at home. He did not receive this years flu shot. Patient is afebrile on presentation. On exam there are tight breath sounds with occasional crackles and end expiratory wheezing bilaterally. Patient was administered 40 mg prednisone, DuoNeb 3. Chest x-ray negative for acute infiltrate by my read. Influenza swab: negative This is COPD exacerbation. Patient is prescribed azithromycin, prednisone, Tessalon Perles and rescue inhaler. He is instructed to continue with at-home duo nebs every 4-6 hours, take all antibiotics until they're gone, follow with the primary care provider, return for worsening symptoms. He is stable and discharged home. Diagnosis Primary Impression: COPD with exacerbation Referrals: Primary Care Physician Additional Instructions: Rest, hydrate. Begin the antibiotics today and take them until they are all gone. Begin oral steroids tomorrow morning. Rescue inhaler as needed for shortness of breath Continue with at-home nebulizers every 4-6 hours as needed for shortness of breath. Tessalon perles every 8 hours as needed for cough. Follow up with your primary care doctor this week. Return to ED for worsening symptoms or any urgent or emergent medical condition. Med/Other Pt SpecificInfo: Prescription(s) given Scripts Albuterol 8.5 GM Inh (Proair Hfa 8.5 GM Inh) 90 Mcg/Act Aer 2 PUFF INH Q4-6H Y for SHORTNESS OF BREATH, #1 INHALER 0 Refills 108 mcg/actuation Prov: Herminio Campbell MD 09/20/17 Benzonatate (Tessalon Perles) 100 Mg Cap 200 MG PO TID Y for COUGH, #20 CAP 0 Refills Prov: Herminio Campbell MD 09/20/17 Azithromycin (Azithromycin) 250 Mg Tab 250 MG PO DIRECTED for Infection, #6 TAB 0 Refills Take 2 tabs (500 mg) on day 1 then 1 tab daily x 4 days. Prov: Herminio Campbell MD 09/20/17 Prednisone (Prednisone) 20 Mg Tab 40 MG PO DAILY for 5 Days, #10 TAB 0 Refills Take 40 mg (2 tablets) daily for 5 days Prov: Herminio Campbell MD 09/20/17 Disposition: 01 DISCHARGE HOME Condition: Stable Diana Greer Sep 20, 2017 11:28
[2017-09-20] MEDS ORDERED: ALBUAER3 INH (11:30)
[2017-09-20] MEDS ORDERED: AZIT250T3 PO (11:30)
[2017-09-20] MEDS ORDERED: PRED20 PO (11:30)
[2017-09-20] MEDS ORDERED: BENZ100 PO (11:30)
[2017-09-20] MEDS: RESP: ALBUTEROL 2.5 MG/IPRATROPIUM 0.5 MG NEB (SCH) INH (11:32)
[2017-09-20 11:33] VITALS: O2SAT 96
--- NOTE | 2017-09-20 11:57 | RADRPT ---
EXAM DATE/TIME: 09/20/2017 11:17 [facility] COMPARISON: CHEST SINGLE AP, August 14, 2016, 11:56. INDICATIONS : Cough and shortness of breath. MEDICAL HISTORY : Myocardial infarction. SURGICAL HISTORY : None. ENCOUNTER: Initial ACUITY: 4 - 6 days PAIN SCORE: 5/10 LOCATION: Bilateral chest FINDINGS: Minimal increased perihilar interstitial markings are again noted and nonspecific. The heart is stabl e. Degenerative changes and scoliosis of the thoracolumbar spine are noted. CONCLUSION: Minimal increased perihilar interstitial markings remain nonspecific. Issac Lorenzana MD on September 20, 2017 at 11:53 Board Certified Radiologist. This report was verified electronically.
== END 2017-09-20 12:13 | disposition home or self-care (01) ==
LOC: PHEFT 10:56
DX: J44.1 Chronic obstructive pulmonary disease with (acute) exacerbation (principal); R50.9 Fever, unspecified; J45.901 Unspecified asthma with (acute) exacerbation; I10 Essential (primary) hypertension; Z72.0 Tobacco use; Z79.01 Long term (current) use of anticoagulants
CPT/HCPCS: 71045; 87804; 94640; 94664; 99285; J7512

== ENCOUNTER 2017-10-05 07:14 | Observation (INO) | payer SELFPAY ==
[~2017-10-05] VITALS: Ht 167.6 cm; Wt 98.7 kg
[2017-10-05] VITALS (9 sets, daily range): BP systolic 109–147; BP diastolic 56–77; PULSE 75–87; RESP 16–18; TEMP 96.3–98.7; O2SAT 90–98
[~2017-10-05 07:14] MED LIST changes: +ALBUAER3 INH; -ASPI-183 PO; +ASPI-516 CHEW; +AZIT250T3 PO; +BENZ100 PO; +PRED20 PO; -XANA2TAB2 PO
[2017-10-05] MEDS ORDERED: POTA1TAB4 PO (08:21)
[2017-10-05] MEDS ORDERED: SODIUM CHLOR 0.9% 1000 ML INJ 1,000 ML IV SCH (09:20)
[2017-10-05] MEDS ORDERED: ONDANSETRON HCL 4 MG/2 ML VIAL IVP ONE (09:30)
[2017-10-05] MEDS ORDERED: SODIUM CHLORIDE 0.9% FLUSH 10 ML FLUSH IV FLUSH PRN ×2 (09:30→11:15)
[2017-10-05] MEDS ORDERED: MORPHINE SULFATE 4 MG/ML INJ IV PUSH ONE (09:30)
--- NOTE | 2017-10-05 09:34 | PD ---
HPI Chief Complaint: Pain: Acute or Chronic Time Seen by Provider: 09:09 Travel History International Travel<30 days: No Contact w/Intl Traveler<30days: No Traveled to known affect area: No History of Present Illness HPI This patient complains of pain in his left side. Started yesterday. Duration 1 day. Pain is moderate to severe in nature. No sciatic radiation. He has chronic back pain but this feels different. There is been no injury or fever or vomiting or diarrhea. Pain is located just under the left rib cage in his left side. No alleviating factors. No exacerbating factors. It is hard for him to get comfortable. In fact he is squatting on the ground next to the bed when I come into the room. PFSH Past Medical History Hx Anticoagulant Therapy: Yes (asa 81mg) Arthritis: Yes (back) Asthma: No Autoimmune Disease: No Anxiety: Yes Depression: No Heart Rhythm Problems: No Cancer: No Cardiac Catheterization: Yes (1999) High Cholesterol: Yes Chemotherapy: No Chest Pain: Yes Congestive Heart Failure: No COPD: No Cerebrovascular Accident: No Coronary Artery Disease: Yes Diabetes: No Diminished Hearing: No Endocrine: No Gastrointestinal Disorders: Yes (ulcerative colitis) GERD: Yes Genitourinary: No Headaches: No Hiatal Hernia: No Heparin Induced Thrombocytopen: No Hypertension: Yes Immune Disorder: No Implanted Vascular Access Dvce: No Kidney Stones: No Musculoskeletal: Yes Neurologic: No Psychiatric: Yes Reproductive: No Respiratory: Yes (copd) Immunizations Current: Yes Migraines: No Myocardial Infarction: Yes (1999) Radiation Therapy: No Renal Failure: No Seizures: No Sickle Cell Disease: No Sleep Apnea: No Thyroid Disease: No Ulcer: No Influenza Vaccination: No Past Surgical History Abdominal Surgery: Yes (appy around 1979) AICD: Yes Appendectomy: Yes Arteriovenous Shunt: No Cardiac Surgery: Yes (heart cath) Ear Surgery: No Endocrine Surgery: No Eye Surgery: No Genitourinary Surgery: No Gynecologic Surgery: No Insulin Pump: No Joint Replacement: No Neurologic Surgery: No Oral Surgery: No Pacemaker: No Thoracic Surgery: No Other Surgery: Yes (right wirst fusion, 0 ROM ) Social History Alcohol Use: No Tobacco Use: Yes (1 PPD) Substance Use: No Allergies-Medications (Allergen,Severity, Reaction): Coded Allergies: penicillin G (Unverified Allergy, Intermediate, HIVES, 10/05/17) Reported Meds & Prescriptions Reported Meds & Active Scripts Active Proair Hfa 8.5 GM Inh (Albuterol Sulfate) 90 Mcg/Act Aer 2 Puff INH Q4-6H PRN 108 mcg/actuation Reported K-Tab (Potassium Chloride) 20 Meq Tab 20 Meq PO DAILY Aspirin 81 Mg Chew 81 Mg CHEW DAILY Amlodipine (Amlodipine Besylate) 10 Mg Tab 10 Mg PO DAILY Review of Systems General / Constitutional: No: Fever Eyes: No: Visual changes HENT: No: Headaches Cardiovascular: No: Chest Pain or Discomfort Respiratory: No: Shortness of Breath Gastrointestinal: No: Abdominal Pain Genitourinary: No: Dysuria Musculoskeletal: Positive: Pain Skin: No Rash Neurologic: No: Weakness Psychiatric: No: Depression Endocrine: No: Polydipsia Hematologic/Lymphatic: No: Easy Bruising Physical Exam Narrative GENERAL: Well-nourished, well-developed patient with left-sided pain . SKIN: Focused skin assessment reveals no rash and nodules. Skin is Warm and dry. HEAD: Atraumatic. Normocephalic. EYES: Pupils equal and round. No scleral icterus. No injection or drainage. ENT: No nasal bleeding or discharge. Mucous membranes pink and moist. NECK: Trachea midline. No JVD. CARDIOVASCULAR: Regular rate and rhythm. No murmur appreciated. RESPIRATORY: No accessory muscle use. Clear to auscultation. Breath sounds equal bilaterally. GASTROINTESTINAL: Abdomen soft, non-tender, nondistended. Hepatic and splenic margins not palpable. MUSCULOSKELETAL: No obvious deformities. No clubbing. No cyanosis. No edema. NEUROLOGICAL: Awake and alert. No obvious cranial nerve deficits. Motor grossly within normal limits. Normal speech. PSYCHIATRIC: Appropriate mood and affect; insight and judgment normal. Data Data Last Documented VS Vital Signs Date Time Temp Pulse Resp B/P (MAP) Pulse Ox O2 Delivery O2 Flow Rate FiO2 10/05/17 10:33 16 95 Nasal Cannula 2.00 10/05/17 09:19 80 10/05/17 07:19 98.7 Orders Orders Complete Blood Count With Diff (10/05/17 09:20) Comprehensive Metabolic Panel (10/05/17 09:20) Prothrombin Time / Inr (Pt) (10/05/17 09:20) Act Partial Throm Time (Ptt) (10/05/17 09:20) Urinalysis - C+S If Indicated (10/05/17 09:20) Iv Access Insert/Monitor (10/05/17 09:20) Ecg Monitoring (10/05/17 09:20) Oximetry (10/05/17 09:20) NPO (10/05/17 09:20) Morphine Inj (Morphine Inj) (10/05/17 09:30) Ondansetron Inj (Zofran Inj) (10/05/17 09:30) Sodium Chlor 0.9% 1000 Ml Inj (Ns 1000 M (10/05/17 09:20) Sodium Chloride 0.9% Flush (Ns Flush) (10/05/17 09:30) Ct Abd/Pel W/O Iv Contrast (10/05/17 ) Labs Laboratory Tests Test 10/05/17 09:30 10/05/17 09:40 Urine Collection Type CLEAN CATCH Urine Color YELLOW Urine Turbidity CLEAR Urine pH 5.5 Urine Specific [place] LESS/EQUAL 1.005 Urine Protein NEG mg/dL Urine Glucose (UA) NEG mg/dL Urine Ketones NEG mg/dL Urine Occult Blood NEG Urine Nitrite NEG Urine Bilirubin NEG Urine Urobilinogen 0.2 MG/DL Urine Leukocyte Esterase NEG Urine RBC 0-3 /hpf Urine Squamous Epithelial Cells 0-5 /hpf Microscopic Urinalysis Comment CULT NOT INDICATED Urine Collection Time 09:30 White Blood Count 8.9 TH/MM3 Red Blood Count 4.83 MIL/MM3 Hemoglobin 13.3 GM/DL Hematocrit 41.3 % Mean Corpuscular Volume 85.5 FL Mean Corpuscular Hemoglobin 27.6 PG Mean Corpuscular Hemoglobin Concent 32.3 % Red Cell Distribution Width 13.4 % Platelet Count 354 TH/MM3 Mean Platelet Volume 6.8 FL Neutrophils (%) (Auto) 69.4 % Lymphocytes (%) (Auto) 18.1 % Monocytes (%) (Auto) 10.6 % Eosinophils (%) (Auto) 1.5 % Basophils (%) (Auto) 0.4 % Neutrophils # (Auto) 6.3 TH/MM3 Lymphocytes # (Auto) 1.6 TH/MM3 Monocytes # (Auto) 0.9 TH/MM3 Eosinophils # (Auto) 0.1 TH/MM3 Basophils # (Auto) 0.0 TH/MM3 CBC Comment DIFF FINAL Differential Comment Prothrombin Time 9.9 SEC Prothromb Time International Ratio 1.0 RATIO Activated Partial Thromboplast Time 29.6 SEC Blood Urea Nitrogen 5 MG/DL Creatinine 0.77 MG/DL Random Glucose 98 MG/DL Total Protein 8.0 GM/DL Albumin 3.2 GM/DL Calcium Level 8.6 MG/DL Alkaline Phosphatase 126 U/L Aspartate Amino Transf (AST/SGOT) 13 U/L Alanine Aminotransferase (ALT/SGPT) 15 U/L Total Bilirubin 0.4 MG/DL Sodium Level 137 MEQ/L Potassium Level 4.2 MEQ/L Chloride Level 101 MEQ/L Carbon Dioxide Level 31.2 MEQ/L Anion Gap 5 MEQ/L Estimat Glomerular Filtration Rate 103 ML/MIN [facility] Medical Decision Making Medical Screen Exam Complete: Yes Emergency Medical Condition: Yes Medical Record Reviewed: Yes Differential Diagnosis Kidney stone, sciatica, acute mesenteric arterial thrombosis Narrative Course I have reviewed the patient's electronic medical record. I have ordered labs and urinalysis and CT of abdomen and pelvis. I am going to start with no contrast to evaluate for possible kidney stone CBC and metabolic studies are normal Urine is clean CT scan reveals small bowel dilation with transition point. Radiologist is suspicious of partial small bowel obstruction He has no prior history of obstructive issues. He does have known vascular disease of the abdomen. He has no appendix Abdomen is soft and benign. I do not feel he needs urgent surgical evaluation. He will be admitted for bowel rest and IV fluid and may need surgical evaluation if no improvement occurs in 1-2 days. I reviewed the case with hospitalist who will admit Diagnosis Primary Impression: Partial obstruction of small intestine Additional Impression: Abdominal pain Qualified Codes: R10.12 - Left upper quadrant pain Admitting Information Admitting Physician Requests: Admit Won Isidro MD Oct 05, 2017 09:34
[2017-10-05 09:49] LABS: AUTOMATED NEUTROPHIL # 6.3 TH/MM3 (1.8-7.7); BASOPHIL % 0.4 % (0.0-2.0); EOSINOPHIL # 0.1 TH/MM3 (0-0.4); EOSINOPHIL % 1.5 % (0.0-4.0); HEMATOCRIT 41.3 % (39.0-51.0); HEMOGLOBIN 13.3 GM/DL (13.0-17.0); LYMPH % 18.1 % (9.0-44.0); LYMPHOCYTE # 1.6 TH/MM3 (1.0-4.8); MEAN CELL VOLUME 85.5 FL (80.0-100.0); MEAN CORPUSCULAR HEMOGLOBIN 27.6 PG (27.0-34.0); MEAN CORPUSCULAR HGB CONC 32.3 % (32.0-36.0); MEAN PLATELET VOLUME 6.8 FL (7.0-11.0); MONO % 10.6 % (0.0-8.0); MONOCYTE # 0.9 TH/MM3 (0-0.9); NEUT % 69.4 % (16.0-70.0); PLATELET COUNT 354 TH/MM3 (150-450); RED BLOOD COUNT 4.83 MIL/MM3 (4.50-5.90); RED CELL DISTRIBUTION WIDTH 13.4 % (11.6-17.2); WHITE BLOOD COUNT 8.9 TH/MM3 (4.0-11.0)
[2017-10-05 09:49] LABS: BILIRUBIN, URINE NEG (NEG); BLOOD, URINE NEG (NEG); GLUCOSE,URINE NEG (NEG); KETONE, URINE NEG (NEG); NITRITE,URINE NEG (NEG); PH, URINE 5.5 (5.0-8.5); URINE COLOR YELLOW (YELLW/STRAW); URINE LEUKOCYTE ESTERASE NEG (NEG)
[2017-10-05 09:53] LABS: RBC, URINE 0-3 /hpf (0-3); SQUAMOUS EPITHELIAL CELL URINE 0-5 /hpf (0-5)
[2017-10-05 09:58] LABS: CHLORIDE 101 MEQ/L (98-107); SODIUM (NA) 137 MEQ/L (136-145)
[2017-10-05 09:59] LABS: ALBUMIN 3.2 GM/DL (3.4-5.0); BICARBONATE 31.2 MEQ/L (21.0-32.0); CALCIUM 8.6 MG/DL (8.5-10.1); GLUCOSE,RANDOM 98 MG/DL (74-106)
[2017-10-05 10:00] LABS: BLOOD UREA NITROGEN 5 MG/DL (7-18)
[2017-10-05 10:01] LABS: PROTHROMBIN TIME - PATIENT 9.9 SEC (9.8-11.6)
[2017-10-05 10:02] LABS: ALT (GPT) 15 U/L (12-78)
[2017-10-05 10:03] LABS: AST (GOT) 13 U/L (15-37); CREATININE 0.77 MG/DL (0.60-1.30); GLOMERULAR FILTRATION RATE 103 ML/MIN (>89)
[2017-10-05 10:05] LABS: ALKALINE PHOSPHATASE 126 U/L (45-117)
--- NOTE | 2017-10-05 10:07 | RADRPT ---
EXAM DATE/TIME: 10/05/2017 09:42 [facility] COMPARISON: CT ABDOMEN & PELVIS W/O CONTRAST, August 14, 2016, 12:00. INDICATIONS : Left flank pain. ORAL CONTRAST: No oral contrast ingested. RADIATION DOSE: 8.71 CTDIvol (mGy) MEDICAL HISTORY : Gastroesophageal reflux disease. Myocardial infarction. Hypertension.Colitis. SURGICAL HISTORY : Defibrillator. Appendectomy. ENCOUNTER: Initial ACUITY: 1 day PAIN SCALE: 10/10 LOCATION: Left flank TECHNIQUE: Volumetric scanning of the abdomen and pelvis was performed. Using automated exposure control and ad justment of the mA and/or kV according to patient size, radiation dose was kept as low as reasonably achievable to obtain optimal diagnostic quality images. DICOM format image data is available electro nically for review and comparison. FINDINGS: LOWER LUNGS: The visualized lower lungs are clear. LIVER: Homogeneous density without lesion. There is no dilation of the biliary tree. A 1 cm calcified stone in the gallbladder lumen. SPLEEN: Normal size without lesion. PANCREAS: Within normal limits. KIDNEYS: Normal in size and shape. There is no mass, stone, or hydronephrosis. Punctate calcification in the ervin of both kidneys is probably vascular related. No obvious stone disease. No obstruction. ADRENAL GLANDS: Within normal limits. VASCULAR: There is no aortic aneurysm. BOWEL/MESENTERY: There is some dilated bowel loops in the left abdomen with an apparent transition in the mid abdomen. Distal small bowel is decompressed. There is stool identified in the colon. ABDOMINAL WALL: Within normal limits. RETROPERITONEUM: There is no lymphadenopathy. BLADDER: No wall thickening or mass. REPRODUCTIVE: Within normal limits. INGUINAL: Prostate is mildly prominent at 4.1 cm with some atrophic and calcifications MUSCULOSKELETAL: Within normal limits for patient age. CONCLUSION: 1. Focally dilated small bowel loops in the left abdomen with an apparent transition in the mid left abdomen. Findings are concerning for a partial small bowel obstruction. Stool is identified in the co lena. 2. 1 cm calcified gallstone in the gallbladder neck. 3. Punctate calcifications in the renal ervin I believe are vascular related. No obvious nephrolithias is or hydronephrosis. 4. Mildly prominent prostate. Dorian Lang MD on October 05, 2017 at 9:51 Board Certified Radiologist. This report was verified electronically.
[2017-10-05 10:10] LABS: TOTAL BILIRUBIN ADULT 0.4 MG/DL (0.2-1.0)
[2017-10-05] MEDS ORDERED: NALOXONE HCL 0.4 MG/ML AMP IV PUSH PRN (11:15)
[2017-10-05] MEDS ORDERED: ONDANSETRON HCL 4 MG/2 ML VIAL IVP PRN (12:00)
[2017-10-05] MEDS ORDERED: MAGNESIUM HYDROXIDE SUSP 30 ML CUP PO PRN (12:00)
[2017-10-05] MEDS: MORPHINE SULFATE 2 MG/ML INJ IV PUSH PRN ×4 (13:13→23:29)
--- NOTE | 2017-10-05 13:24 | HHI.HP ---
[facility] Primary Care Physician Heather Frank MD Admission Diagnosis partial SBO Diagnoses: (1) Partial obstruction of small intestine Diagnosis: Principal (2) Abdominal pain Diagnosis: Principal Chief Complaint: Abdominal pain Travel History International Travel<30 Days: No Contact w/Intl Traveler <30 Da: No Traveled to Known Affected Are: No History of Present Illness 62-year-old male with known history of chronic back pain, hypertension, coronary artery disease, history of myocardial infarction who presented to hospital because of left flank pain. Patient states that the pain started at approximately 2 PM yesterday afternoon and it got up to a 10/10 on pain scale. He is classified as a constant sharp pain. The only time that it improved was when he squatted down. Patient states that the pain did not lessen or worsen with food intake, defecation, urination. Patient's last bowel movement was 530 yesterday. Patient denies any melena, hematochezia. Patient denies any previous history of kidney stones. Because the pain did not improve he came to emergency department for evaluation. Upon workup, laboratory studies were relatively unremarkable. CT scan does show partial small bowel obstruction with transition zone in the left abdomen. Because of that reason, patient was placed in observation for further recommendations. Review of Systems Gastrointestinal: COMPLAINS OF: Abdominal pain Except as stated in HPI: all other systems reviewed are Neg Past Family Social History Past Medical History Hypertension Coronary artery disease Chronic back pain History myocardial infarction Past Surgical History Cardiac catheterization Appendectomy EGD/colonoscopy Reported Medications Reported Meds & Active Scripts Active Proair Hfa 8.5 GM Inh (Albuterol Sulfate) 90 Mcg/Act Aer 2 Puff INH Q4-6H PRN 108 mcg/actuation Reported K-Tab (Potassium Chloride) 20 Meq Tab 20 Meq PO DAILY Aspirin 81 Mg Chew 81 Mg CHEW DAILY Amlodipine (Amlodipine Besylate) 10 Mg Tab 10 Mg PO DAILY Allergies: Coded Allergies: penicillin G (Unverified Allergy, Intermediate, HIVES, 10/05/17) Family History Reviewed is significant for mother at age 68 from MRSA pneumonia, father at age 62 from lung cancer Social History Patient is down to 1 pack of cigarettes a day, he used to smoke 1-1/2 pack a cigarettes a day since he was 13 years old. Denies any alcohol or illicit drugs Physical Exam Vital Signs Vital Signs Date Time Temp Pulse Resp B/P (MAP) Pulse Ox O2 Delivery O2 Flow Rate FiO2 10/05/17 11:34 86 18 112/67 (82) 99 10/05/17 10:33 16 95 Nasal Cannula 2.00 10/05/17 10:28 16 90 Nasal Cannula 2.00 10/05/17 10:01 18 10/05/17 09:46 18 97 Room Air 10/05/17 09:19 80 18 147/77 (100) 97 Room Air 10/05/17 07:19 98.7 87 16 141/61 (87) 98 Room Air Physical Exam GENERAL: This is a well-nourished, well-developed patient, in no apparent distress. SKIN: No rashes, ecchymoses or lesions. Cool and dry. HEAD: Atraumatic. Normocephalic. No temporal or scalp tenderness. EYES: Pupils equal round and reactive. Extraocular motions intact. No scleral icterus. No injection or drainage. ENT: Nose without bleeding, purulent drainage or septal hematoma. Throat without erythema, tonsillar hypertrophy or exudate. Uvula midline. Airway patent. NECK: Trachea midline. No JVD or lymphadenopathy. Supple, nontender, no meningeal signs. CARDIOVASCULAR: Regular rate and rhythm without murmurs, gallops, or rubs. RESPIRATORY: Clear to auscultation. Breath sounds equal bilaterally. No wheezes , rales, or rhonchi. GASTROINTESTINAL: Abdomen soft, non-tender, nondistended. No hepato-splenomegaly , or palpable masses. No guarding. Mild left CVA tenderness MUSCULOSKELETAL: Extremities without clubbing, cyanosis, or edema. No joint tenderness, effusion, or edema noted. No calf tenderness. Negative Homans sign bilaterally. NEUROLOGICAL: Awake and alert. Cranial nerves II through XII intact. Motor and sensory grossly within normal limits. Five out of 5 muscle strength in all muscle groups. Normal speech. Laboratory Laboratory Tests Test 10/05/17 09:30 10/05/17 09:40 Urine Collection Type CLEAN CATCH Urine Color YELLOW Urine Turbidity CLEAR Urine pH 5.5 Urine Specific [place] LESS/EQUAL 1.005 Urine Protein NEG Urine Glucose (UA) NEG Urine Ketones NEG Urine Occult Blood NEG Urine Nitrite NEG Urine Bilirubin NEG Urine Urobilinogen 0.2 Urine Leukocyte Esterase NEG Urine RBC 0-3 Urine Squamous Epithelial Cells 0-5 Microscopic Urinalysis Comment CULT NOT INDICATED Urine Collection Time 09:30 White Blood Count 8.9 Red Blood Count 4.83 Hemoglobin 13.3 Hematocrit 41.3 Mean Corpuscular Volume 85.5 Mean Corpuscular Hemoglobin 27.6 Mean Corpuscular Hemoglobin Concent 32.3 Red Cell Distribution Width 13.4 Platelet Count 354 Mean Platelet Volume 6.8 Neutrophils (%) (Auto) 69.4 Lymphocytes (%) (Auto) 18.1 Monocytes (%) (Auto) 10.6 Eosinophils (%) (Auto) 1.5 Basophils (%) (Auto) 0.4 Neutrophils # (Auto) 6.3 Lymphocytes # (Auto) 1.6 Monocytes # (Auto) 0.9 Eosinophils # (Auto) 0.1 Basophils # (Auto) 0.0 CBC Comment DIFF FINAL Differential Comment Prothrombin Time 9.9 Prothromb Time International Ratio 1.0 Activated Partial Thromboplast Time 29.6 Blood Urea Nitrogen 5 Creatinine 0.77 Random Glucose 98 Total Protein 8.0 Albumin 3.2 Calcium Level 8.6 Alkaline Phosphatase 126 Aspartate Amino Transf (AST/SGOT) 13 Alanine Aminotransferase (ALT/SGPT) 15 Total Bilirubin 0.4 Sodium Level 137 Potassium Level 4.2 Chloride Level 101 Carbon Dioxide Level 31.2 Anion Gap 5 Estimat Glomerular Filtration Rate 103 Result Diagram: 10/05/17 0940 10/05/17 0940 Imaging Last Impressions Abdomen/Pelvis CT 10/05/17 0000 Signed Impressions: Service Date/Time: Thursday, October 05, 2017 09:42 - CONCLUSION: 1. Focally dilated small bowel loops in the left abdomen with an apparent transition in the mid left abdomen. Findings are concerning for a partial small bowel obstruction. Stool is identified in the colon. 2. 1 cm calcified gallstone in the gallbladder neck. 3. Punctate calcifications in the renal ervin I believe are vascular related. No obvious nephrolithiasis or hydronephrosis. 4. Mildly prominent prostate. MD Cinthia Oh VTE Risk Assessment Caprini VTE Risk Assessment: Mod/High Risk (score >= 2) Caprini Risk Assessment Model Point Value = 1 Point Value = 2 Point Value = 3 Point Value = 5 Age 41-60 Minor surgery BMI > 25 kg/m2 Swollen legs Varicose veins or History of unexplained or recurrent spontaneous Oral contraceptives or hormone replacement Sepsis (< 1 month) Serious lung disease, including pneumonia (< 1 month) Abnormal pulmonary function Acute myocardial infarction Congestive heart failure (< 1 month) History of inflammatory bowel disease Medical patient at bed rest Age 61-74 Arthroscopic surgery Major open surgery (> 45 min) Laparoscopic surgery (> 45 min) Malignancy Confined to bed (> 72 hours) Immobilizing plaster cast Central venous access Age >= 75 History of VTE Family history of VTE Factor V Leiden Prothrombin [id number] Lupus anticoagulant Anticardiolipin antibodies Elevated serum homocysteine Heparin-induced thrombocytopenia Other congenital or acquired thrombophilia Stroke (< 1 month) Elective arthroplasty Hip, pelvis, or leg fracture Acute spinal cord injury (< 1 month) Prophylaxis Regimen Total Risk Factor Score Risk Level Prophylaxis Regimen 0-1 Low Early ambulation 2 Moderate Order ONE of the following: *Sequential Compression Device (SCD) *Heparin 5000 units SQ BID 3-4 Higher Order ONE of the following medications: *Heparin 5000 units SQ TID *Enoxaparin/Lovenox 40 mg SQ daily (WT < 150 kg, CrCl > 30 mL/min) *Enoxaparin/Lovenox 30 mg SQ daily (WT < 150 kg, CrCl > 10-29 mL/min) *Enoxaparin/Lovenox 30 mg SQ BID (WT < 150 kg, CrCl > 30 mL/min) AND/OR *Sequential Compression Device (SCD) 5 or more Highest Order ONE of the following medications: *Heparin 5000 units SQ TID (Preferred with Epidurals) *Enoxaparin/Lovenox 40 mg SQ daily (WT < 150 kg, CrCl > 30 mL/min) *Enoxaparin/Lovenox 30 mg SQ daily (WT < 150 kg, CrCl > 10-29 mL/min) *Enoxaparin/Lovenox 30 mg SQ BID (WT < 150 kg, CrCl > 30 mL/min) AND *Sequential Compression Device (SCD) Assessment and Plan Assessment and Plan Partial small bowel obstruction CT scan does indicate partial small bowel obstruction with transition point Keep patient n.p.o. Continue IV fluids Continue pain control Follow-up abdominal x-ray in the a.m. Hypertension Blood pressure stable this time Vasotec as needed Chronic tobacco use Constipation cessation Offered patient nicotine patch, he deferred at this time DVT prevention Sequential compression devices Problem Qualifiers (1) Abdominal pain: Qualified Codes: R10.12 - Left upper quadrant pain Won Campbell Oct 05, 2017 13:24
[2017-10-05] MEDS: SODIUM CHLOR 0.9% 1000 ML INJ 1,000 ML IV SCH ×2 (13:25→23:30)
[2017-10-05] MEDS ORDERED: ENALAPRILAT 1.25 MG/ML VIAL IV PUSH PRN (14:00)
[2017-10-05] MEDS: SODIUM CHLORIDE 0.9% FLUSH 10 ML FLUSH IV FLUSH SCH (20:14)
[2017-10-06 00:18] VITALS: BP 122/59; PULSE 95; RESP 16; TEMP 97.9; O2SAT 93
[2017-10-06] MEDS: MORPHINE SULFATE 2 MG/ML INJ IV PUSH PRN ×2 (06:41→11:40)
[2017-10-06 07:20] LABS: AUTOMATED NEUTROPHIL # 5.4 TH/MM3 (1.8-7.7); BASOPHIL % 0.3 % (0.0-2.0); EOSINOPHIL # 0.1 TH/MM3 (0-0.4); EOSINOPHIL % 1.6 % (0.0-4.0); HEMATOCRIT 38.7 % (39.0-51.0); HEMOGLOBIN 12.6 GM/DL (13.0-17.0); LYMPH % 20.4 % (9.0-44.0); LYMPHOCYTE # 1.6 TH/MM3 (1.0-4.8); MEAN CELL VOLUME 85.4 FL (80.0-100.0); MEAN CORPUSCULAR HEMOGLOBIN 27.8 PG (27.0-34.0); MEAN CORPUSCULAR HGB CONC 32.6 % (32.0-36.0); MEAN PLATELET VOLUME 7.3 FL (7.0-11.0); MONO % 8.9 % (0.0-8.0); MONOCYTE # 0.7 TH/MM3 (0-0.9); NEUT % 68.8 % (16.0-70.0); PLATELET COUNT 306 TH/MM3 (150-450); RED BLOOD COUNT 4.54 MIL/MM3 (4.50-5.90); RED CELL DISTRIBUTION WIDTH 12.8 % (11.6-17.2); WHITE BLOOD COUNT 7.8 TH/MM3 (4.0-11.0)
[2017-10-06 07:36] LABS: CHLORIDE 106 MEQ/L (98-107); SODIUM (NA) 140 MEQ/L (136-145)
[2017-10-06 07:44] LABS: ALBUMIN 2.8 GM/DL (3.4-5.0); BLOOD UREA NITROGEN 5 MG/DL (7-18); GLUCOSE,RANDOM 96 MG/DL (74-106)
[2017-10-06 07:47] LABS: ALT (GPT) 13 U/L (12-78)
[2017-10-06 07:48] LABS: AST (GOT) 11 U/L (15-37); CREATININE 0.69 MG/DL (0.60-1.30); GLOMERULAR FILTRATION RATE 117 ML/MIN (>89)
[2017-10-06 07:49] LABS: TOTAL BILIRUBIN ADULT 0.5 MG/DL (0.2-1.0); TOTAL PROTEIN 7.2 GM/DL (6.4-8.2)
[2017-10-06 07:50] LABS: ALKALINE PHOSPHATASE 109 U/L (45-117)
[2017-10-06 08:00] VITALS: BP 135/68; PULSE 84; RESP 18; TEMP 98.5; O2SAT 93
[2017-10-06] MEDS: SODIUM CHLOR 0.9% 1000 ML INJ 1,000 ML IV SCH ×2 (08:00→11:42)
[2017-10-06] MEDS: SODIUM CHLORIDE 0.9% FLUSH 10 ML FLUSH IV FLUSH SCH (09:00)
--- NOTE | 2017-10-06 09:17 | HHI.PR ---
Subjective Remarks Patient seen and examined today for follow-up on partial small bowel obstruction. Patient states that he still having pain, however it is controlled with medication. He is hungry and wants to eat. Patient has had bowel movement overnight. Vital signs are stable. Patient afebrile Objective Vitals Vital Signs Date Time Temp Pulse Resp B/P (MAP) Pulse Ox O2 Delivery O2 Flow Rate FiO2 10/06/17 08:00 98.5 84 18 135/68 (90) 93 10/06/17 07:24 18 10/06/17 04:59 10/06/17 00:18 97.9 95 16 122/59 (80) 93 10/05/17 21:06 98.1 86 18 128/58 (81) 92 10/05/17 16:00 97.0 80 18 109/62 (78) 92 10/05/17 13:18 20 10/05/17 12:00 96.3 75 18 111/56 (74) 92 10/05/17 11:34 86 18 112/67 (82) 99 10/05/17 10:33 16 95 Nasal Cannula 2.00 10/05/17 10:28 16 90 Nasal Cannula 2.00 10/05/17 10:01 18 10/05/17 09:46 18 97 Room Air 10/05/17 09:19 80 18 147/77 (100) 97 Room Air I/O 10/05/17 10/05/17 10/05/17 10/06/17 10/06/17 10/06/17 07:00 15:00 23:00 07:00 15:00 23:00 Intake Total 1000 ml Balance 1000 ml Intake IV Total 1000 ml # Voids 2 3 # Bowel Movements 0 Result Diagram: 10/06/1720 10/06/17 0620 Objective Remarks GENERAL: Well-developed, well-nourished, in no acute distress. alert and orientated HEENT: Head is normocephalic without any lesions or masses noted. Facial features are symmetric. Eyes: Extraocular muscles are intact. Conjunctivae were clear. NECK: Supple without any masses. Trachea midline no deviation. No JVD, CARDIAC: Regular rhythm, regular rate. S1/S2 are heard. No murmurs gallops or rubs. LUNGS: Clear to auscultation bilaterally. No wheeze, rhonchi or rales. No use of accessory muscles on inspiration or expiration. ABDOMEN: Soft, nontender. Nondistended. Bowel sounds heard in all 4 quadrants. No organomegaly or masses. Negative rebound, negative guarding EXTREMITIES: No edema, pulses are equal bilaterally. No cyanosis or clubbing NEUROLOGY: Mood and affect appear appropriate. Cranial nerves II through XII grossly intact. Moving all extremities, speech is clear Urinary Catheter: No Vascular Central Line Catheter: No A/P Assessment and Plan Partial small bowel obstruction CT scan does indicate partial small bowel obstruction with transition point Advance diet as tolerated Continue IV fluids Adjust pain control, [place] 5 for pain 1-5, [place] 7.5 for pain 6-10, morphine 2 mg IV for breakthrough pain Follow-up abdominal x-ray indicates nonobstructive bowel gas pattern with moderate amount of stool in colon Patient has tolerated diet without any pain. Patient states that he also had a rather healthy bowel movement again and he feels great Patient is eager to go home Hypertension Blood pressure stable this time Vasotec as needed Chronic tobacco use Counseled on cessation Offered patient nicotine patch, he deferred at this time DVT prevention Sequential compression devices Discharge Planning Discharge home in stable condition Activity: Ad bobby. Diet: Regular diet Medication per medication reconciliation Follow-up with primary medical doctor in 1 week Won Campbell Oct 06, 2017 09:16
--- NOTE | 2017-10-06 09:28 | RADRPT ---
EXAM DATE/TIME: 10/06/2017 08:32 [facility] COMPARISON: ABDOMEN UPRIGHT ONLY, April 11, 2017, 14:33. CT ABDOMEN & PELVIS W/O CONTRAST, October 05, 2017, 9:4 2. INDICATIONS : Abdomen and back pain. Abnormal CT with focally dilated small bowel loops in left abdomen. MEDICAL HISTORY : None. SURGICAL HISTORY : None. ENCOUNTER: Subsequent ACUITY: 3 days PAIN SCORE: 10/10 LOCATION: Bilateral abdomen FINDINGS: AP supine and erect views the abdomen were obtained and demonstrate a moderate amount of stool throug hout the colon. There is no free air or mass effect. There are several loops of nondilated air-con[place]i [place] small bowel in the left mid abdomen. The bony structures remain intact. The lung bases are clear aerated CONCLUSION: 1. Nonobstructive bowel gas pattern with moderate amount of stool. 2. No free air. Lan Mccarthy MD on October 06, 2017 at 9:24 Board Certified Radiologist. This report was verified electronically.
[2017-10-06] MEDS ORDERED: ACETAMINOPHEN/HYDROcodone 325 MG/7.5 MG TAB PO PRN (09:45)
[2017-10-06] MEDS ORDERED: ACETAMINOPHEN/HYDROcodone 325 MG/5 MG TAB PO PRN (09:45)
[2017-10-06 11:46] VITALS: RESP 18
[2017-10-06] MEDS ORDERED: HYDR-3516 PO (13:05)
--- NOTE | 2017-10-06 13:05 | HHI.DCPOC ---
Discharge Care Plan Diagnosis: (1) Partial obstruction of small intestine (2) Abdominal pain Goals to Promote Your Health * To prevent worsening of your condition and complications * To maintain your health at the optimal level Directions to Meet Your Goals Take your medications as prescribed Follow your dietary instruction Follow activity as directed Keep your appointments as scheduled Take your immunizations and boosters as scheduled If your symptoms worsen call your PCP, if no PCP go to Urgent Care Center or Emergency Room Smoking is Dangerous to Your Health. Avoid second hand smoke Call the 24-hour hour crisis hotline for domestic abuse at Won Campbell Oct 06, 2017 13:05
== END 2017-10-06 14:01 | disposition home or self-care (01) ==
LOC: PHED 07:14 → PHEDA 10:58 → PH3A 12:06
PROVIDERS: ADMIT Hospitalist; ATTEND Hospitalist
DX: K56.600 Partial intestinal obstruction, unspecified as to cause (principal); I10 Essential (primary) hypertension; I25.10 Atherosclerotic heart disease of native coronary artery without angina pectoris; I25.2 Old myocardial infarction; M54.9 Dorsalgia, unspecified; G89.29 Other chronic pain; F17.210 Nicotine dependence, cigarettes, uncomplicated; Z95.810 Presence of automatic (implantable) cardiac defibrillator; Z79.01 Long term (current) use of anticoagulants
CPT/HCPCS: 74019; 74176; 80053; 81001; 85025; 85610; 85730; 96361; 96374; 96375; 96376; 99285; G0378; J2270; J2405; J7030

== ENCOUNTER 2017-11-05 09:38 | Observation (INO) | payer SELFPAY ==
[2017-11-05] VITALS (13 sets, daily range): BP systolic 105–143; BP diastolic 56–75; PULSE 64–88; RESP 16–20; TEMP 96.8–98.8; O2SAT 93–97
[~2017-11-05 09:38] MED LIST changes: -AZIT250T3 PO; -BENZ100 PO; +HYDR-3516 PO; +POTA1TAB4 PO; -PRED20 PO
--- NOTE | 2017-11-05 09:56 | PD ---
HPI Chief Complaint: Chest Pain Time Seen by Provider: 09:49 Travel History International Travel<30 days: No Contact w/Intl Traveler<30days: No Traveled to known affect area: No History of Present Illness HPI 62-year-old male is complaining of chest pain and feeling lightheaded. He started having some chest pain last night. It was substernal pain in the head to some radiation to his left arm. resolved after an hour or so and he felt okay this morning when he went to work. When he was at work he stood up and he had very lightheaded and could not walk. He had an get some help and someone let him sit down. At that point he again had some substernal chest pain and also some discomfort in his arm. He has a history of TX about 18 years ago he does take aspirin daily and he took 2 this morning. He has had occasional chest pain in the past but has not sought emergency care since his heart attack. At the time of the heart attack he had a cath which showed a 60% blockage and he was told he had coronary artery disease PFSH Past Medical History Hx Anticoagulant Therapy: Yes (asa 81mg) Arthritis: Yes (back) Asthma: No Autoimmune Disease: No Anxiety: Yes Depression: No Heart Rhythm Problems: No Cancer: No Cardiac Catheterization: Yes (1999) Cardiovascular Problems: Yes (TX) High Cholesterol: Yes Chemotherapy: No Chest Pain: Yes Congestive Heart Failure: No COPD: No Cerebrovascular Accident: No Coronary Artery Disease: Yes Diabetes: No Diminished Hearing: No Endocrine: No Gastrointestinal Disorders: Yes (ulcerative colitis) GERD: Yes Genitourinary: No Headaches: No Hiatal Hernia: No Heparin Induced Thrombocytopen: No Hypertension: Yes Immune Disorder: No Implanted Vascular Access Dvce: No Kidney Stones: No Musculoskeletal: Yes Neurologic: No Psychiatric: Yes Reproductive: No Respiratory: Yes (copd) Immunizations Current: Yes Migraines: No Myocardial Infarction: Yes (1999) Radiation Therapy: No Renal Failure: No Seizures: No Sickle Cell Disease: No Sleep Apnea: No Thyroid Disease: No Ulcer: No Past Surgical History Abdominal Surgery: Yes (appy around 1979) AICD: Yes Appendectomy: Yes Arteriovenous Shunt: No Cardiac Surgery: Yes (heart cath) Ear Surgery: No Endocrine Surgery: No Eye Surgery: No Genitourinary Surgery: No Gynecologic Surgery: No Insulin Pump: No Joint Replacement: No Neurologic Surgery: No Oral Surgery: No Pacemaker: No Thoracic Surgery: No Other Surgery: Yes (right wirst fusion, 0 ROM ) Social History Alcohol Use: No Tobacco Use: Yes (1 PPD) Substance Use: No Allergies-Medications (Allergen,Severity, Reaction): Coded Allergies: penicillin G (Unverified Allergy, Intermediate, HIVES, 10/05/17) Reported Meds & Prescriptions Reported Meds & Active Scripts Active Hydrocodone-Acetamin 5-325 mg (Hydrocodone/Acetaminophen) 5 Mg-325 Mg Tablet 1 Tab PO Q6H PRN Proair Hfa 8.5 GM Inh (Albuterol Sulfate) 90 Mcg/Act Aer 2 Puff INH Q4-6H PRN 108 mcg/actuation Reported Spiriva Handihaler (Tiotropium Inh) 18 Mcg Cap 18 Mcg INH DAILY 1 capsule = 18 mcg Xanax (Alprazolam) 2 Mg Tab 2 Mg PO Q8H PRN K-Tab (Potassium Chloride) 20 Meq Tab 20 Meq PO DAILY Aspirin 81 Mg Chew 81 Mg CHEW DAILY Amlodipine (Amlodipine Besylate) 10 Mg Tab 10 Mg PO DAILY Physical Exam Narrative GENERAL: Well-developed male SKIN: Focused skin assessment warm/dry. HEAD: Atraumatic. Normocephalic. EYES: Pupils equal and round. No scleral icterus. No injection or drainage. ENT: No nasal bleeding or discharge. Mucous membranes pink and moist. NECK: Trachea midline. No JVD. CARDIOVASCULAR: Regular rate and rhythm. No murmur appreciated. RESPIRATORY: No accessory muscle use. Clear to auscultation. Breath sounds equal bilaterally. GASTROINTESTINAL: Abdomen soft, non-tender, nondistended. Hepatic and splenic margins not palpable. MUSCULOSKELETAL: No obvious deformities. No clubbing. No cyanosis. No edema. NEUROLOGICAL: Awake and alert. No obvious cranial nerve deficits. Motor grossly within normal limits. Normal speech. PSYCHIATRIC: Appropriate mood and affect; insight and judgment normal. Data Data Last Documented VS Vital Signs Date Time Temp Pulse Resp B/P (MAP) Pulse Ox O2 Delivery O2 Flow Rate FiO2 11/05/17 11:05 78 18 120/70 (87) 93 Room Air 11/05/17 09:44 97.8 Orders Orders Electrocardiogram (11/05/17 09:49) Complete Blood Count With Diff (11/05/17 09:49) Comprehensive Metabolic Panel (11/05/17 09:49) Magnesium (Mg) (11/05/17 09:49) Prothrombin Time / Inr (Pt) (11/05/17 09:49) Act Partial Throm Time (Ptt) (11/05/17 09:49) Troponin I (11/05/17 09:49) Chest, Single Ap (11/05/17 09:49) Ecg Monitoring (11/05/17 09:49) Bilateral Bp Monitoring (11/05/17 09:49) Iv Access Insert/Monitor (11/05/17 09:49) Oximetry (11/05/17 09:49) Oxygen Administration (11/05/17 09:49) Aspirin Chew (Aspirin Chew) (11/05/17 10:00) Sodium Chloride 0.9% Flush (Ns Flush) (11/05/17 10:00) Admit Order (Ed Use Only) (11/05/17 11:13) Labs Laboratory Tests Test 11/05/17 09:54 White Blood Count 7.1 TH/MM3 Red Blood Count 4.61 MIL/MM3 Hemoglobin 12.9 GM/DL Hematocrit 39.2 % Mean Corpuscular Volume 85.0 FL Mean Corpuscular Hemoglobin 27.9 PG Mean Corpuscular Hemoglobin Concent 32.8 % Red Cell Distribution Width 13.8 % Platelet Count 263 TH/MM3 Mean Platelet Volume 7.4 FL Neutrophils (%) (Auto) 70.8 % Lymphocytes (%) (Auto) 15.5 % Monocytes (%) (Auto) 7.9 % Eosinophils (%) (Auto) 5.1 % Basophils (%) (Auto) 0.7 % Neutrophils # (Auto) 5.0 TH/MM3 Lymphocytes # (Auto) 1.1 TH/MM3 Monocytes # (Auto) 0.6 TH/MM3 Eosinophils # (Auto) 0.4 TH/MM3 Basophils # (Auto) 0.0 TH/MM3 CBC Comment DIFF FINAL Differential Comment Erythrocyte Sedimentation Rate 11 mm/hr Prothrombin Time 10.3 SEC Prothromb Time International Ratio 1.0 RATIO Activated Partial Thromboplast Time 25.0 SEC Blood Urea Nitrogen 10 MG/DL Creatinine 0.91 MG/DL Random Glucose 130 MG/DL Total Protein 7.3 GM/DL Albumin 3.5 GM/DL Calcium Level 8.3 MG/DL Magnesium Level 2.2 MG/DL Alkaline Phosphatase 145 U/L Aspartate Amino Transf (AST/SGOT) 13 U/L Alanine Aminotransferase (ALT/SGPT) 16 U/L Total Bilirubin 0.3 MG/DL Sodium Level 138 MEQ/L Potassium Level 3.8 MEQ/L Chloride Level 105 MEQ/L Carbon Dioxide Level 27.8 MEQ/L Anion Gap 5 MEQ/L Estimat Glomerular Filtration Rate 85 ML/MIN Troponin I LESS THAN 0.02 NG/ML Thyroid Stimulating Hormone 3rd Gen 3.060 uIU/ML MDM Medical Decision Making Medical Screen Exam Complete: Yes Emergency Medical Condition: Yes Medical Record Reviewed: Yes Differential Diagnosis Differential includes acute coronary syndrome, TX, dysrhythmia Narrative Course EKG shows sinus rhythm there are no acute ST-T wave changes. There is an occasional PVC. Troponin is normal. Patient will be admitted to chest pain center for further evaluation Diagnosis Primary Impression: Chest pain Admitting Information Admitting Physician Requests: Observation Roger Mejia MD Nov 05, 2017 09:56
[2017-11-05] MEDS ORDERED: SODIUM CHLORIDE 0.9% FLUSH 10 ML FLUSH IVF PRN (10:00)
[2017-11-05] MEDS ORDERED: ASPIRIN 81 MG CHEW TAB PO ONE (10:00)
[2017-11-05 10:03] LABS: BASOPHIL % 0.7 % (0.0-2.0); EOSINOPHIL # 0.4 TH/MM3 (0-0.4); EOSINOPHIL % 5.1 % (0.0-4.0); HEMATOCRIT 39.2 % (39.0-51.0); HEMOGLOBIN 12.9 GM/DL (13.0-17.0); LYMPH % 15.5 % (9.0-44.0); LYMPHOCYTE # 1.1 TH/MM3 (1.0-4.8); MEAN CORPUSCULAR HEMOGLOBIN 27.9 PG (27.0-34.0); MEAN CORPUSCULAR HGB CONC 32.8 % (32.0-36.0); MEAN PLATELET VOLUME 7.4 FL (7.0-11.0); MONO % 7.9 % (0.0-8.0); MONOCYTE # 0.6 TH/MM3 (0-0.9); NEUT % 70.8 % (16.0-70.0); PLATELET COUNT 263 TH/MM3 (150-450); RED BLOOD COUNT 4.61 MIL/MM3 (4.50-5.90); RED CELL DISTRIBUTION WIDTH 13.8 % (11.6-17.2); WHITE BLOOD COUNT 7.1 TH/MM3 (4.0-11.0)
[2017-11-05 10:12] LABS: CHLORIDE 105 MEQ/L (98-107); SODIUM (NA) 138 MEQ/L (136-145)
[2017-11-05 10:15] LABS: ALBUMIN 3.5 GM/DL (3.4-5.0); BICARBONATE 27.8 MEQ/L (21.0-32.0); BLOOD UREA NITROGEN 10 MG/DL (7-18); CALCIUM 8.3 MG/DL (8.5-10.1); GLUCOSE,RANDOM 130 MG/DL (74-106); MAGNESIUM 2.2 MG/DL (1.5-2.5)
[2017-11-05 10:16] LABS: PROTHROMBIN TIME - PATIENT 10.3 SEC (9.8-11.6)
[2017-11-05 10:19] LABS: AST (GOT) 13 U/L (15-37); CREATININE 0.91 MG/DL (0.60-1.30); GLOMERULAR FILTRATION RATE 85 ML/MIN (>89)
[2017-11-05 10:20] LABS: ALT (GPT) 16 U/L (12-78); TOTAL BILIRUBIN ADULT 0.3 MG/DL (0.2-1.0); TOTAL PROTEIN 7.3 GM/DL (6.4-8.2)
[2017-11-05 10:21] LABS: ALKALINE PHOSPHATASE 145 U/L (45-117)
[2017-11-05 10:24] LABS: TROPONIN I LESS THAN 0.02 NG/ML (0.02-0.05)
--- NOTE | 2017-11-05 10:34 | RADRPT ---
EXAM DATE/TIME: 11/05/2017 10:06 [facility] COMPARISON: CHEST SINGLE AP, September 20, 2017, 11:17. INDICATIONS : Chest pain, short of breath. MEDICAL HISTORY : Myocardial infarction. Hypertension Chronic obstructive pulmonary disease. SURGICAL HISTORY : None. ENCOUNTER: Initial ACUITY: 2 days PAIN SCORE: 2/10 LOCATION: Bilateral chest FINDINGS: A single view of the chest demonstrates the lungs to be symmetrically aerated without evidence of mas s, infiltrate or effusion. The cardiomediastinal contours are unremarkable. Osseous structures are intact. CONCLUSION: The lungs are clear. Zac Holloway MD on November 05, 2017 at 10:32 Board Certified Radiologist. This report was verified electronically.
[2017-11-05] MEDS ORDERED: XANA2TAB2 PO (12:21)
[2017-11-05] MEDS ORDERED: SPIRCAP INH (12:21)
[2017-11-05] MEDS ORDERED: ACETAMINOPHEN 500 MG CPLT PO PRN (13:00)
[2017-11-05] MEDS ORDERED: ACETAMINOPHEN/HYDROcodone 325 MG/7.5 MG TAB PO PRN (13:00)
--- NOTE | 2017-11-05 13:12 | HHI.HP ---
[facility] Service [facility] Primary Care Physician Heather Frank MD Admission Diagnosis CHEST PAIN Diagnoses: (1) Near syncope Diagnosis: Principal (2) Generalized weakness Diagnosis: Principal (3) Atypical chest pain Diagnosis: Principal Chief Complaint: Significant near syncope with generalized weakness and chest pain Travel History International Travel<30 Days: No Contact w/Intl Traveler <30 Da: No Traveled to Known Affected Are: No History of Present Illness This is a 62-year-old male with known history of hypertension, coronary disease, chronic back pain who presented to hospital because of acute onset of lightheadedness, dizziness, profound weakness and chest pain. 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 Patient states that he got profound weakness where his extremities felt like rubber. He thought he was going to pass out. At that time he started developing a sharp pain in the middle part of his chest over the epigastric/mid sternum area which radiated to the left arm. He did not have any diaphoresis. He did have lightheadedness, dizziness, shortness of breath. Pain was 8/10 on a pain scale. When the secretaries noticed him in thought that he was quite pale in white as a sheet. They rolled a office chair over to him where he sat down and that is where he stayed until he was brought to the emergency department for evaluation. Patient states that he underwent workup in the emergency department during that time he still had significant chest pain. Lightheadedness and dizziness did resolve after the use of aspirin. However presently he is still experiencing a chest discomfort which is 2/10 on a pain scale. ER physician recommended the patient be observed in the hospital for chest pain and near syncope. Review of Systems Constitutional: COMPLAINS OF: Dizziness Respiratory: COMPLAINS OF: Shortness of breath Cardiovascular: COMPLAINS OF: Chest pain, Syncope (Near syncope) Neurologic: COMPLAINS OF: Abnormal gait, Poor Balance Except as stated in HPI: all other systems reviewed are Neg Past Family Social History Past Medical History Hypertension Coronary artery disease Chronic back pain History myocardial infarction Past Surgical History Cardiac catheterization Appendectomy EGD/colonoscopy Reported Medications Reported Meds & Active Scripts Active Hydrocodone-Acetamin 5-325 mg (Hydrocodone/Acetaminophen) 5 Mg-325 Mg Tablet 1 Tab PO Q6H PRN Proair Hfa 8.5 GM Inh (Albuterol Sulfate) 90 Mcg/Act Aer 2 Puff INH Q4-6H PRN 108 mcg/actuation Reported Spiriva Handihaler (Tiotropium Inh) 18 Mcg Cap 18 Mcg INH DAILY 1 capsule = 18 mcg Xanax (Alprazolam) 2 Mg Tab 2 Mg PO Q8H PRN K-Tab (Potassium Chloride) 20 Meq Tab 20 Meq PO DAILY Aspirin 81 Mg Chew 81 Mg CHEW DAILY Amlodipine (Amlodipine Besylate) 10 Mg Tab 10 Mg PO DAILY Allergies: Coded Allergies: penicillin G (Unverified Allergy, Intermediate, HIVES, 10/05/17) Family History Reviewed is significant for mother at age 68 from MRSA pneumonia, father at age 62 from lung cancer Social History Patient is down to 1 pack of cigarettes a day, he used to smoke 1-1/2 pack a cigarettes a day since he was 13 years old. Denies any alcohol or illicit drugs Physical Exam Vital Signs Vital Signs Date Time Temp Pulse Resp B/P (MAP) Pulse Ox O2 Delivery O2 Flow Rate FiO2 11/05/17 12:21 11/05/17 11:30 88 16 125/66 (85) 93 Room Air 11/05/17 11:22 88 18 125/66 (85) 93 Room Air 116/67 (83) 11/05/17 11:20 88 18 125/66 (85) 93 Room Air 116/67 (83) Automatic Cuff 11/05/17 11:05 78 18 120/70 (87) 93 Room Air 11/05/17 10:35 78 18 114/62 (79) 93 11/05/17 10:05 70 18 130/66 (87) 94 Room Air 11/05/17 09:50 96 Room Air 11/05/17 09:44 97.8 84 20 143/71 (95) 95 Physical Exam GENERAL: Well-developed, well-nourished, in no acute distress. alert and orientated HEENT: Head is normocephalic without any lesions or masses noted. Facial features are symmetric. Eyes: Pupils equal round reactive to light. Extraocular muscles are intact. Conjunctivae were clear. Oropharyngeal: Pharynx without any erythema edema. Tongue is midline without deviation. Buccal mucosa is moist without any masses or lesions NECK: Supple without any masses. Trachea midline no deviation. No JVD, no bruits are appreciated CARDIAC: Regular rhythm, regular rate. S1/S2 are heard. No murmurs gallops or rubs. LUNGS: Clear to auscultation bilaterally. No wheeze, rhonchi or rales. No use of accessory muscles on inspiration or expiration. ABDOMEN: Soft, nontender. Nondistended. Bowel sounds heard in all 4 quadrants. No organomegaly or masses. Negative rebound, negative guarding EXTREMITIES: No edema, pulses are equal bilaterally. No cyanosis or clubbing NEUROLOGY: Mood and affect appear appropriate. Cranial nerves II through XII grossly intact. Muscle strength 5/5 in upper and lower extremities bilaterally. Deep tendon reflexes are 2+ in upper and lower extremities bilaterally. Laboratory Laboratory Tests Test 11/05/17 09:54 White Blood Count 7.1 Red Blood Count 4.61 Hemoglobin 12.9 Hematocrit 39.2 Mean Corpuscular Volume 85.0 Mean Corpuscular Hemoglobin 27.9 Mean Corpuscular Hemoglobin Concent 32.8 Red Cell Distribution Width 13.8 Platelet Count 263 Mean Platelet Volume 7.4 Neutrophils (%) (Auto) 70.8 Lymphocytes (%) (Auto) 15.5 Monocytes (%) (Auto) 7.9 Eosinophils (%) (Auto) 5.1 Basophils (%) (Auto) 0.7 Neutrophils # (Auto) 5.0 Lymphocytes # (Auto) 1.1 Monocytes # (Auto) 0.6 Eosinophils # (Auto) 0.4 Basophils # (Auto) 0.0 CBC Comment DIFF FINAL Differential Comment Prothrombin Time 10.3 Prothromb Time International Ratio 1.0 Activated Partial Thromboplast Time 25.0 Blood Urea Nitrogen 10 Creatinine 0.91 Random Glucose 130 Total Protein 7.3 Albumin 3.5 Calcium Level 8.3 Magnesium Level 2.2 Alkaline Phosphatase 145 Aspartate Amino Transf (AST/SGOT) 13 Alanine Aminotransferase (ALT/SGPT) 16 Total Bilirubin 0.3 Sodium Level 138 Potassium Level 3.8 Chloride Level 105 Carbon Dioxide Level 27.8 Anion Gap 5 Estimat Glomerular Filtration Rate 85 Troponin I LESS THAN 0.02 Result Diagram: 11/05/1754 11/05/1754 Imaging Last Impressions Chest X-Ray 11/05/1749 Signed Impressions: Service Date/Time: Sunday, November 05, 2017 10:06 - CONCLUSION: The lungs are clear. MD Cinthia Collazo VTE Risk Assessment Cinthia VTE Risk Assessment: Mod/High Risk (score >= 2) Caprini Risk Assessment Model Point Value = 1 Point Value = 2 Point Value = 3 Point Value = 5 Age 41-60 Minor surgery BMI > 25 kg/m2 Swollen legs Varicose veins or History of unexplained or recurrent spontaneous Oral contraceptives or hormone replacement Sepsis (< 1 month) Serious lung disease, including pneumonia (< 1 month) Abnormal pulmonary function Acute myocardial infarction Congestive heart failure (< 1 month) History of inflammatory bowel disease Medical patient at bed rest Age 61-74 Arthroscopic surgery Major open surgery (> 45 min) Laparoscopic surgery (> 45 min) Malignancy Confined to bed (> 72 hours) Immobilizing plaster cast Central venous access Age >= 75 History of VTE Family history of VTE Factor V Leiden Prothrombin 30207G Lupus anticoagulant Anticardiolipin antibodies Elevated serum homocysteine Heparin-induced thrombocytopenia Other congenital or acquired thrombophilia Stroke (< 1 month) Elective arthroplasty Hip, pelvis, or leg fracture Acute spinal cord injury (< 1 month) Prophylaxis Regimen Total Risk Factor Score Risk Level Prophylaxis Regimen 0-1 Low Early ambulation 2 Moderate Order ONE of the following: *Sequential Compression Device (SCD) *Heparin 5000 units SQ BID 3-4 Higher Order ONE of the following medications: *Heparin 5000 units SQ TID *Enoxaparin/Lovenox 40 mg SQ daily (WT < 150 kg, CrCl > 30 mL/min) *Enoxaparin/Lovenox 30 mg SQ daily (WT < 150 kg, CrCl > 10-29 mL/min) *Enoxaparin/Lovenox 30 mg SQ BID (WT < 150 kg, CrCl > 30 mL/min) AND/OR *Sequential Compression Device (SCD) 5 or more Highest Order ONE of the following medications: *Heparin 5000 units SQ TID (Preferred with Epidurals) *Enoxaparin/Lovenox 40 mg SQ daily (WT < 150 kg, CrCl > 30 mL/min) *Enoxaparin/Lovenox 30 mg SQ daily (WT < 150 kg, CrCl > 10-29 mL/min) *Enoxaparin/Lovenox 30 mg SQ BID (WT < 150 kg, CrCl > 30 mL/min) AND *Sequential Compression Device (SCD) Assessment and Plan Assessment and Plan Chest pain, possible unstable angina -Patient with increased risk factors to include age, hypertension, coronary disease, tobacco use -We will ruled patient out for acute cardiac event with serial cardiac enzymes and serial EKGs -Patient ruled out for acute coronary event will pursue myocardial perfusion study in the morning -Continue aspirin, start nitroglycerin as needed, start Lopressor, start statin -Obtain lipid panel Near syncope with lightheadedness, dizziness, profound weakness -Laboratory studies as far do not indicate any acute abnormality -We will get CT of the brain to rule out any acute intracranial process, obtain echocardiogram, carotid ultrasound -We will check orthostatic vitals -We will check further laboratory studies to include sed rate, TSH, B12, folate , urine drug screen -Physical therapy evaluation Hypertension, coronary disease -Continue home medication DVT prevention -Sequential compression devices Won Campbell Nov 05, 2017 13:12
[2017-11-05] MEDS ORDERED: PILL SPLITTER OTHER PRN (13:15)
[2017-11-05] MEDS: METOPROLOL TARTRATE 25 MG TAB PO SCH ×2 (13:35→21:00)
[2017-11-05] MEDS: MORPHINE SULFATE 4 MG/ML INJ IV PUSH PRN ×3 (13:39→21:00)
[2017-11-05] MEDS: NITROGLYCERIN 2% OINT 1 GM PACKET TOP SCH ×2 (13:40→17:43)
[2017-11-05] MEDS: SODIUM CHLORIDE 0.9% FLUSH 10 ML FLUSH IV FLUSH PRN (13:43)
[2017-11-05 14:14] LABS: MAGNESIUM 2.2 MG/DL (1.5-2.5)
--- NOTE | 2017-11-05 16:18 | RADRPT ---
EXAM DATE/TIME: 11/05/2017 15:12 [facility] COMPARISON: No previous studies available for comparison. INDICATIONS : Syncope. RADIATION DOSE: 50.92 CTDIvol (mGy) MEDICAL HISTORY : Gastroesophageal reflux disease. Myocardial infarction. Hypertension.Colitis. SURGICAL HISTORY : Defibrillator. Appendectomy. ENCOUNTER: Initial ACUITY: 1 day PAIN SCALE: 0/10 LOCATION: cranial TECHNIQUE: Multiple contiguous axial images were obtained of the head. Using automated exposure control and adj ustment of the mA and/or kV according to patient size, radiation dose was kept as low as reasonably a chievable to obtain optimal diagnostic quality images. DICOM format image data is available electro nically for review and comparison. FINDINGS: CEREBRUM: The ventricles are normal for age. No evidence of midline shift, mass lesion, hemorrhage or acute in farction. No extra-axial fluid collections are seen. POSTERIOR FOSSA: The cerebellum and brainstem are intact. The 4th ventricle is midline. The cerebellopontine angle i s unremarkable. EXTRACRANIAL: The visualized portion of the orbits is intact. SKULL: The calvaria is intact. No evidence of skull fracture. CONCLUSION: Negative noncontrast CT brain. Zac Holloway MD on November 05, 2017 at 16:16 Board Certified Radiologist. This report was verified electronically.
[2017-11-05 16:50] LABS: TROPONIN I LESS THAN 0.02 NG/ML (0.02-0.05)
--- NOTE | 2017-11-05 17:20 | RADRPT ---
EXAM DATE/TIME: 11/05/2017 14:09 [facility] COMPARISON: No previous studies available for comparison. INDICATIONS : Syncope. MEDICAL HISTORY : Hypercholesterolemia. Hypertension. Gastroesophageal reflux disease. Neuropathy. MN. Arthritis. COPD. SURGICAL HISTORY : Appendectomy. Heart cath. Right wrist fusion. ENCOUNTER: Initial ACUITY: 1 day PAIN SCORE: 0/10 LOCATION: Bilateral neck PEAK SYSTOLIC VELOCITIES (cm/sec): ICA/CCA RATIO: Right: 2.9 Left: 2.9 ICA: Right: 171 Left: 277 CCA: Right: 58 Left: 94 ECA: Right: 44 Left: 127 VERTEBRAL: Right: 75 antegrade Left: 51 antegrade Elevated flow velocities and ICA/CCA ratios have been found to correlate with increased degrees of vessel stenosis, calculated as percentage of diameter relative to a normal segment of distal ICA/CCA FINDINGS: RIGHT CAROTID: Bulky calcified plaque in the carotid bulb extending to the origin of the ICA with elevated velocitie s consistent with moderate stenosis. LEFT CAROTID: Bulky calcified plaque in the carotid bulb extending to the origin of the ICA with elevated velocitie s consistent with severe stenosis. VERTEBRAL ARTERIES: Antegrade flow is seen in both vertebral arteries. MISCELLANEOUS: None. CONCLUSION: 1. Findings consistent with moderate, 50-69%, right carotid stenosis. 2. Findings consistent with severe, > 70%, left carotid stenosis. 3. Antegrade vertebral artery bilaterally. Chemo Mendiola MD on November 05, 2017 at 17:10 Board Certified Radiologist. This report was verified electronically.
[2017-11-05 17:25] LABS: FOLATE 5.8 NG/ML (3.1-17.5)
--- NOTE | 2017-11-05 17:34 | EKG ---
Date Performed: 11/05/2017 Time Performed: 15:42:59 PTAGE: 62 years EKG: Sinus rhythm POSSIBLE INFERIOR MYOCARDIAL INFARCTION BORDERLINE ECG Compared to prior electrocardiogram, POSSIBLE Inferior myocardial infarction and Premature ventricular contractions are now present . PREVIOUS TRACING : 06/12/2016 17.25 DOCTOR: Shahid Zarate Interpretating Date/Time 11/05/2017 17:33:30
[2017-11-05] MEDS: ALPRAZolam 0.5 MG TAB PO PRN (21:00)
[2017-11-05] MEDS ORDERED: ATORVASTATIN 20 MG TAB PO SCH (21:00)
[2017-11-05] MEDS: SODIUM CHLORIDE 0.9% FLUSH 10 ML FLUSH IV FLUSH SCH (21:00)
[2017-11-05] MEDS ORDERED: IOHEXOL 350 MG/ML 10 ML VIAL (for RAD DIAG) IVCONTRAST ONE (21:20)
--- NOTE | 2017-11-05 22:00 | EKG ---
Date Performed: 11/05/2017 Time Performed: 09:41:03 PTAGE: 62 years EKG: Baseline artifact present Sinus rhythm WITH PVCs. Compared to prior electrocardiogram, Premature ventricular contractions are now present . DOCTOR: Shahid Zarate Interpretating Date/Time 11/05/2017 21:59:38
--- NOTE | 2017-11-05 22:08 | RADRPT ---
EXAM DATE/TIME: 11/05/2017 21:07 [facility] COMPARISON: US CAROTID ARTERIES, November 05, 2017, 14:09. INDICATIONS : Abnormal carotid ultrasound. IV CONTRAST: 100 cc Omnipaque 350 (iohexol) IV RADIATION DOSE: 42.14 CTDIvol (mGy) MEDICAL HISTORY : Gastroesophageal reflux disease. Myocardial infarction. SURGICAL HISTORY : Defibrillator. Appendectomy. ENCOUNTER: Subsequent ACUITY: 1 day PAIN SCALE: 0/10 LOCATION: neck Elevated flow velocities and ICA/CCA ratios have been found to correlate with increased degrees of vessel stenosis, calculated as percentage of diameter relative to a normal segment of distal ICA/CCA. TECHNIQUE: Volumetric scanning was performed using a multirow detector CT scanner. The data was post processed with a variety of visualization algorithms including full-volume maximum intensity projection, multip lanar sliding thin-slab reformation, curved-planar reformation, and surface-rendering techniques. Us ing automated exposure control and adjustment of the mA and/or kV according to patient size, radiatio n dose was kept as low as reasonably achievable to obtain optimal diagnostic quality images. DICOM f ormat image data is available electronically for review and comparison. FINDINGS: The great vessel origins are patent. Both common carotid arteries are patent within the neck. There i s moderate atherosclerotic disease around the carotid bifurcations. On the left side there is a moderate stenosis of the proximal left internal carotid artery with appro ximately 50-60% stenosis. On the right side there is also a moderate stenosis in the 50% range. Remainder of the internal carot id arteries are patent. Both vertebral arteries are patent within the neck. CONCLUSION: 1. Moderate stenosis in the proximal internal carotid arteries bilaterally as above. Charanjit Solano MD on November 05, 2017 at 22:00 Board Certified Radiologist. This report was verified electronically.
[2017-11-05 23:02] LABS: TROPONIN I LESS THAN 0.02 NG/ML (0.02-0.05)
[2017-11-06 04:00] VITALS: BP 111/64; PULSE 61; RESP 20; TEMP 96.5; O2SAT 94
[2017-11-06] MEDS: MORPHINE SULFATE 4 MG/ML INJ IV PUSH PRN ×2 (05:00→08:47)
[2017-11-06] MEDS: ALPRAZolam 0.5 MG TAB PO PRN ×2 (05:00→11:21)
--- NOTE | 2017-11-06 05:03 | EKG ---
Date Performed: 11/05/2017 Time Performed: 22:19:20 PTAGE: 62 years EKG: Sinus rhythm WITH OCCASIONAL VENTRICULAR PREMATURE COMPLEXES BORDERLINE ECG Compared to prior electrocardiogram, Premature ventricular contractions are now present . PREVIOUS TRACING : 11/05/2017 15.42 DOCTOR: Shahid Zarate Interpretating Date/Time 11/06/2017 05:01:18
[2017-11-06] MEDS: NITROGLYCERIN 2% OINT 1 GM PACKET TOP SCH ×3 (06:00→11:46)
[2017-11-06 06:45] LABS: AUTOMATED NEUTROPHIL # 4.4 TH/MM3 (1.8-7.7); BASOPHIL % 0.6 % (0.0-2.0); EOSINOPHIL # 0.4 TH/MM3 (0-0.4); EOSINOPHIL % 5.4 % (0.0-4.0); HEMATOCRIT 37.4 % (39.0-51.0); HEMOGLOBIN 12.1 GM/DL (13.0-17.0); LYMPH % 21.3 % (9.0-44.0); LYMPHOCYTE # 1.5 TH/MM3 (1.0-4.8); MEAN CELL VOLUME 85.8 FL (80.0-100.0); MEAN CORPUSCULAR HEMOGLOBIN 27.8 PG (27.0-34.0); MEAN CORPUSCULAR HGB CONC 32.4 % (32.0-36.0); MEAN PLATELET VOLUME 7.6 FL (7.0-11.0); MONO % 8.9 % (0.0-8.0); MONOCYTE # 0.6 TH/MM3 (0-0.9); NEUT % 63.8 % (16.0-70.0); PLATELET COUNT 276 TH/MM3 (150-450); RED BLOOD COUNT 4.36 MIL/MM3 (4.50-5.90); RED CELL DISTRIBUTION WIDTH 14.2 % (11.6-17.2); WHITE BLOOD COUNT 6.9 TH/MM3 (4.0-11.0)
[2017-11-06 06:51] LABS: CALCIUM 8.3 MG/DL (8.5-10.1)
[2017-11-06 06:52] LABS: BICARBONATE 29.5 MEQ/L (21.0-32.0)
[2017-11-06 06:55] LABS: CREATININE 0.65 MG/DL (0.60-1.30)
[2017-11-06 08:00] VITALS: PULSE 67
[2017-11-06] MEDS: SODIUM CHLORIDE 0.9% FLUSH 10 ML FLUSH IV FLUSH SCH (08:32)
[2017-11-06] MEDS: METOPROLOL TARTRATE 25 MG TAB PO SCH (08:32)
[2017-11-06] MEDS: SODIUM CHLORIDE 0.9% FLUSH 10 ML FLUSH IV FLUSH PRN (08:48)
[2017-11-06 08:52] VITALS: RESP 18
[2017-11-06] MEDS ORDERED: ASPIRIN 325 MG TAB PO SCH (09:00)
--- NOTE | 2017-11-06 10:18 | RADRPT ---
EXAM DATE/TIME: 11/06/2017 08:31 [place] COMPARISON: MYOCARDIAL PERF PHARM SPECT, GATED W/EF, November 27, 2015, 10:33. INDICATIONS : Substernal chest pain radiating to the left arm with ligtheadedness. Angina. DOSE: 27.1 mCi Tc99m Myoview at stress. 8.4 mCi Tc99m Myoview at rest. 0.4 mg Lexiscan STRESS SYMPTOMS: Dyspnea and tingling. EJECTION FRACTION: 59% MEDICAL HISTORY : Myocardial infarction. Hypercholesterolemia. Gastroesophageal reflux disease. Hypertension. Smoker. SURGICAL HISTORY : Appendectomy. Coronary catherization. ENCOUNTER: Initial ACUITY: 1 day PAIN SCALE: 7/10 LOCATION: Substernal chest TECHNIQUE: The patient underwent pharmacologic stress with infusion of prescribed dose. Continuous ECG tracing was monitored during stress. Gated SPECT imaging was performed after stress and conventional SPECT i maging was performed at rest. The examination was performed on a SPECT/CT scanner, both attenuation and non-corrected datasets were reviewed. FINDINGS: DISTRIBUTION: The maximum perfused segment at stress is in the septal wall. PERFUSION STUDY: The pattern of perfusion at stress is within normal limits with regional variations perfusion within 25%. The summed stress score is 2. GATED STUDY: There is intact wall motion and thickening without hypokinetic or dyskinetic segments. CONCLUSION: 1. No evidence of stress-induced ischemia. 2. Intact wall motion with 59% ejection fraction. RISK CATEGORY: Low (<1% Annual Mortality Rate) Zac Holloway MD on November 06, 2017 at 10:14 Board Certified Radiologist. This report was verified electronically.
[2017-11-06 10:55] LABS: CHOLESTEROL/ HDL RATIO 2.05 RATIO
[2017-11-06] MEDS ORDERED: REGADENOSON INJ 0.4 MG/5 ML SYR IV ONE (11:15)
--- NOTE | 2017-11-06 11:33 | ECHRPT ---
Indication: SYNCOPE CONCLUSIONS Normal left ventricular size and wall thickness. The left ventricular systolic function is normal wi th an estimated ejection fraction of 60%. Normal wall motion. Trileaflet aortic valve. Mild leaflet sclerosis. No aortic valve stenosis or regurgitation. Trace tricuspid regurgitation. BP: / HR: Rhythm: MEASUREMENTS (Male / Female) Normal Values Technical Quality: 2D ECHO LV Diastolic Diameter PLAX 4.5 cm 4.2 - 5.9 / 3.9 - 5.3 cm LV Systolic Diameter PLAX 3.2 cm IVS Diastolic Thickness 1.0 cm 0.6 - 1.0 / 0.6 - 0.9 cm LVPW Diastolic Thickness 0.9 cm 0.6 - 1.0 / 0.6 - 0.9 cm LV Relative Wall Thickness 0.4 RV Internal Dim ED PLAX 2.3 cm M-MODE Aortic Root Diameter MM 3.3 cm LA Systolic Diameter MM 3.6 cm LA Ao Ratio MM 1.1 AV Cusp Separation MM 2.0 cm DOPPLER Mitral E Point Velocity 102.0 cm/s Mitral A Point Velocity 89.6 cm/s Mitral E to A Ratio 1.1 LV E' Lateral Velocity 10.5 cm/s Mitral E to LV E' Lateral Ratio 9.7 TR Peak Velocity 261.0 cm/s TR Peak Gradient 27.2 mmHg Right Atrial Pressure 10.0 mmHg Pulmonary Artery Systolic Pressu 37.2 mmHg Right Ventricular Systolic Press 37.2 mmHg FINDINGS LEFT VENTRICLE Normal left ventricular size and wall thickness. The left ventricular systolic function is normal wi th an estimated ejection fraction of 60%. Normal wall motion. RIGHT VENTRICLE Normal right ventricular size and systolic function. LEFT ATRIUM The left atrial size is normal. RIGHT ATRIUM The right atrial size is normal. ATRIAL SEPTUM Normal atrial septal thickness without atrial level shunting by limited color doppler interrogation. AORTA The aortic root and proximal ascending aorta are normal in size on limited imaging. MITRAL VALVE Structurally normal mitral valve. No mitral valve stenosis . AORTIC VALVE Trileaflet aortic valve. Mild leaflet sclerosis. No aortic valve stenosis or regurgitation. TRICUSPID VALVE Structurally normal tricuspid valve. No tricuspid valve stenosis . Trace tricuspid regurgitation. PULMONARY VALVE No pulmonary valve regurgitation or stenosis. VESSELS The inferior vena cava is normal in size. PERICARDIUM No pericardial effusion. Sunil Galicia MD (Electronically Signed) Final Date:06 Nov 2017 11:32
--- NOTE | 2017-11-06 11:46 | HHI.PR ---
Subjective Remarks Follow-up chest pain and near syncope. Patient seen and examined, sitting on side of bed comfortably in no apparent distress. at bedside. Patient underwent cardiac stress test, report printed and reviewed with and . EF normal. No ischemia noted. Chest pain has resolved. ACS ruled out. Patient encouraged to continue aspirin. Lipid panel unremarkable. Patient denies any further lightheadedness, dizziness or weakness. CT of the brain showing no acute intracranial process. Echocardiogram within normal limits. Carotid ultrasound showing severe stenosis therefore a neck CTA was ordered, showing moderate stenosis, around the 50% range. Orthostatics negative. Symptoms have resolved, patient feeling much improved. Eating well with no abdominal pain, nausea or vomiting. No further chest pain. Vital signs are stable. Afebrile. Objective Vitals Vital Signs Date Time Temp Pulse Resp B/P (MAP) Pulse Ox O2 Delivery O2 Flow Rate FiO2 11/06/17 08:52 18 11/06/17 08:00 67 11/06/17 04:00 96.5 61 20 111/64 (80) 94 11/05/17 22:55 96.8 67 18 105/61 (76) 94 11/05/17 20:25 95 21 11/05/17 20:00 98.8 64 18 134/75 (94) 97 11/05/17 20:00 98.8 64 18 134/75 (94) 97 11/05/17 16:42 97.7 71 16 125/61 (82) 95 115/56 (75) 113/58 (76) 11/05/17 16:00 94 21 11/05/17 12:21 I/O 11/05/17 11/05/17 11/05/17 11/06/17 11/06/17 11/06/17 07:00 15:00 23:00 07:00 15:00 23:00 Intake Total 0 ml Balance 0 ml Intake Oral 0 ml # Voids 6 1 # Bowel Movements 1 Result Diagram: 11/06/1760611/06/17 06 Imaging Last Impressions Myocardial Perfusion Scan Nuc Med 11/06/17 0600 Signed Impressions: Service Date/Time: Monday, November 06, 2017 08:31 - CONCLUSION: 1. No evidence of stress-induced ischemia. 2. Intact wall motion with 59%% ejection fraction. RISK CATEGORY: Low (<1%% Annual Mortality Rate) Zac Holloway MD Chest X-Ray 11/05/17 0949 Signed Impressions: Service Date/Time: Sunday, November 05, 2017 10:06 - CONCLUSION: The lungs are clear. Zac Holloway MD Neck CTA 11/05/17 0000 Signed Impressions: Service Date/Time: Sunday, November 05, 2017 21:07 - CONCLUSION: 1. Moderate stenosis in the proximal internal carotid arteries bilaterally as above. Charanjit Solano MD Head CT 11/05/17 Signed Impressions: Service Date/Time: Sunday, November 05, 2017 15:12 - CONCLUSION: Negative noncontrast CT brain. Zac Holloway MD Carotid Artery Ultrasound 11/05/17 Signed Impressions: Service Date/Time: Sunday, November 05, 2017 14:09 - CONCLUSION: 1. Findings consistent with moderate, 50-69%%, right carotid stenosis. 2. Findings consistent with severe, > 70%%, left carotid stenosis. 3. Antegrade vertebral artery bilaterally. Chemo Mendiola MD Objective Remarks GENERAL: Well-developed, well-nourished patient in [facility]. SKIN: Warm and dry. No rash. HEAD: Normocephalic. Atraumatic. EYES: Pupils equal and round. No scleral icterus. No injection or drainage. ENT: No nasal bleeding or discharge. Mucous membranes pink and moist. NECK: Supple. Trachea midline. CARDIOVASCULAR: Regular rate and rhythm. S1, S2 noted. No murmur appreciated. No chest pain to palpation. RESPIRATORY: No accessory muscle use. Clear to auscultation. Breath sounds equal bilaterally. GASTROINTESTINAL: Abdomen soft, non-tender, nondistended. Normoactive bowel sounds x4. MUSCULOSKELETAL: No obvious deformities. Extremities without clubbing, cyanosis , or edema. NEUROLOGICAL: Awake and alert. No obvious cranial nerve deficits. Motor grossly within normal limits. 5/5 muscle strength in bilateral upper and lower extremities. Normal speech. PSYCHIATRIC: Appropriate mood and affect; insight and judgment normal. A/P Problem List: (1) Near syncope ICD Code: R55 - Syncope and collapse (2) Generalized weakness ICD Code: R53.1 - Weakness (3) Atypical chest pain ICD Code: R07.89 - Other chest pain Status: Acute Assessment and Plan Chest pain, possible unstable angina -Patient with increased risk factors to include age, hypertension, coronary disease, tobacco use -We ruled patient out for acute cardiac event with serial cardiac enzymes and serial EKGs -Patient underwent cardiac fusion study this morning. EF adequate. No ischemia. -Continue aspirin, nitroglycerin as needed, started on Lopressor and statin. -Lipid panel normal. Near syncope with lightheadedness, dizziness, profound weakness -Laboratory studies as far do not indicate any acute abnormality - CT of the brain negative, echocardiogram unremarkable, carotid ultrasound showing severe stenosis in the left artery. Next CTA ordered showing moderate stenosis. In the 50% range. Patient encouraged follow-up with PCP to monitor closely. All symptoms have resolved. No lightheadedness, dizziness or weakness. Orthostatic blood pressures negative. -Laboratory studies including sed rate, TSH, B12, folate, urine drug screen all negative. -Physical therapy evaluation, appreciate input recommendations. Home with no PT. Hypertension, coronary disease -Continue home medication. Encourage use of aspirin. Follow-up with PCP for carotid artery stenosis. DVT prevention -Sequential compression devices Chayo Conway November 06, 2017 11:46
[2017-11-06] MEDS ORDERED: METO25TA3 PO (11:49)
[2017-11-06] MEDS ORDERED: ATOR20TA15 PO (11:49)
--- NOTE | 2017-11-06 11:50 | HHI.DCPOC ---
Discharge Care Plan Diagnosis: (1) HTN (hypertension) (2) Chest pain (3) CAD (coronary artery disease) (4) Near syncope (5) Atypical chest pain Goals to Promote Your Health * To prevent worsening of your condition and complications * To maintain your health at the optimal level Directions to Meet Your Goals Take your medications as prescribed Follow your dietary instruction Follow activity as directed Keep your appointments as scheduled Take your immunizations and boosters as scheduled If your symptoms worsen call your PCP, if no PCP go to Urgent Care Center or Emergency Room Smoking is Dangerous to Your Health. Avoid second hand smoke Call the 24-hour hour crisis hotline for domestic abuse at Chayo Conway November 06, 2017 11:50
== END 2017-11-06 12:27 | disposition home or self-care (01) ==
LOC: PHED 09:38 → PHEDA 11:14 → PH3B 12:11
PROVIDERS: ADMIT Hospitalist; ATTEND Hospitalist
DX: R07.89 Other chest pain (principal); R06.02 Shortness of breath; R55 Syncope and collapse; R42 Dizziness and giddiness; R53.1 Weakness; I25.10 Atherosclerotic heart disease of native coronary artery without angina pectoris; E78.00 Pure hypercholesterolemia, unspecified; I10 Essential (primary) hypertension; I25.2 Old myocardial infarction; I65.29 Occlusion and stenosis of unspecified carotid artery; I49.3 Ventricular premature depolarization; J44.9 Chronic obstructive pulmonary disease, unspecified; K21.9 Gastro-esophageal reflux disease without esophagitis; M54.9 Dorsalgia, unspecified; G89.29 Other chronic pain; F17.210 Nicotine dependence, cigarettes, uncomplicated; Z79.899 Other long term (current) drug therapy; Z79.82 Long term (current) use of aspirin
CPT/HCPCS: 70450; 70498; 71045; 78452; 80048; 80053; 80061; 80307; 82550; 82607; 82746; 83735; 84443; 84484; 85025; 85610; 85652; 85730; 93005; 93017; 93306; 93880; 97162; A9502; G8987; G8988; J2270; J2785; Q9967; 96374; 96376; G0378